=== PATIENT | female | born 1980 | race Caucasian/White ===

== ENCOUNTER 2017-01-03 06:57 | Emergency (ER) | payer MEDICAID, OTHER ==
[~2017-01-03 06:57] MED LIST: DULO30CA PO; IBUP200C PO; SERO200T PO
[2017-01-03] MEDS ORDERED: ONDANSETRON 4MG/2ML VIAL (J2405) As Ordered ONE (07:36)
[2017-01-03 07:48] LABS: BASO % 0.1 % (0.0-1.0); EOS # 0.3 K/mm3 (0.0-0.50); EOS % 2.5 % (0.0-3.0); LARGE UNSTAINED CELL % 0.2 % (0.0-4.0); LYMPH # 0.6 K/mm3 (1.5-4.5); MEAN CORPUSCULAR HEMOGLOBIN 31.7 pg (27.0-33.0); MEAN CORPUSCULAR HGB CONC 34.3 g/dl (32.0-36.5); MEAN CORPUSCULAR VOLUME 92.4 fl (80.0-96.0); MONO # 0.2 K/mm3 (0.0-0.8); NEUTROPHILS # 10.7 K/mm3 (1.8-7.7); NEUTROPHILS % 90.3 % (36.0-66.0); PLATELET COUNT, AUTOMATED 323 k/mm3 (150-450); RED CELL DISTRIBUTION WIDTH 12.3 % (11.5-14.5); WHITE BLOOD COUNT 11.8 K/mm3 (4.0-10.0)
[2017-01-03 08:06] LABS: ANION GAP 8 MEQ/L (8-16); BLOOD UREA NITROGEN 14 MG/DL (7-18); CALCIUM LEVEL 8.9 MG/DL (8.5-10.1); CARBON DIOXIDE LEVEL 30 MEQ/L (21-32); CHLORIDE LEVEL 101 MEQ/L (98-107); CREATININE FOR GFR 0.79 MG/DL (0.55-1.02); GLOMERULAR FILTRATION RATE > 60.0 (>60); GLUCOSE, FASTING 81 MG/DL (70-105); POTASSIUM SERUM 3.6 MEQ/L (3.5-5.1); SODIUM LEVEL 139 MEQ/L (136-145)
[2017-01-03] MEDS ORDERED: KETOROLAC 30 MG/ML VIAL (J1885) As Ordered ONE (08:54)
--- NOTE | 2017-01-03 10:14 | EDDOCDS ---
Nurse's Notes [facility] Name: Ann Nicole Age: 36 yrs Sex: Female : 1980 Arrival Date: 01/03/2017 Time: 06:57 Bed 11 Private MD: Diagnosis: Infectious gastroenteritis and colitis, unspecified Presentation: 01/03 07:00 Presenting complaint: Patient states: vomiting every hour and diarrhea every hour since hs1 6 pm last night. Patient states she worked through all this last night as well. Patient states she has not been able to void since 7pm and that her body aches and she has muscles spasms. Risk factors: the patient reports no vaginal bleeding. Adult Sepsis Screening: The patient does not have new or worsening altered mentation. Patient's respiratory rate is less than 22. Systolic blood pressure is greater than 100. Patient has a qSOFA score of 0- Negative Sepsis Screen. Suicide/Homicide risk assessment- the patient denies having any suicidal and/or homicidal ideations and does not present with any other emotional, behavioral or mental health complaints. Status: Patient is not a social worker health services or dependent. Transition of care: patient was not received from another setting of care. 07:00 Acuity: MITZY Level 3 hs1 07:00 Method Of Arrival: Walkin/Carried/Asstd hs1 Triage Assessment: 07:02 General: Appears in no apparent distress, Behavior is appropriate for age, cooperative. hs1 Pain: Location: "everywhere" Pain currently is 8 out of 10 on a pain scale. HIV screening NA for this visit Offered previously. GI: Reports bloating, cramping, diarrhea, flatulence, nausea, vomiting. 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 Cymbalta 60 mg Oral cpDR 1 cap once daily 2. Ativan 0.5 mg Oral tab 1 tab as needed 3. Seroquel 200 mg Oral tab nightly states does not take anymore? - PMHx: Anxiety; Bipolar disorder; - PSHx: Spinal Chord Stimulator Implantation; - Social history: Smoking status: Patient uses tobacco products, heavy tobacco smoker. No barriers to communication noted, The patient speaks fluent Pakistani, Speaks appropriately for age. - : The pt / caregiver states he / she is not on anticoagulants. Home medication list is obtained from the patient. - Exposure Risk Screening:: None identified. Screenin:45 Screening information is obtained from the patient. Fall risk: No risks identified. ja5 Assistance ADL's: requires no assistance with activities of daily living. Abuse/DV Screen: The patient / caregiver reports he/she is: not in a situation that causes fear, pain or injury. Nutritional screening: On no prescribed diet. Advance Directives: Currently, there is no health care proxy. There is no active DNR order. There is no living will. 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 home support is adequate. Assessment: 07:30 General: Appears uncomfortable, Behavior is appropriate for age, cooperative. Pain: ja5 Location: left lower quadrant Pain currently is 8 out of 10 on a pain scale. Neurological: Level of Consciousness is awake, alert, Oriented to person, place, time. Cardiovascular: Capillary refill < 3 seconds Heart tones S1 S2 present. Respiratory: Airway is patent Respiratory effort is even, unlabored. GI: Abdomen is flat, non- distended Bowel sounds present X 4 quads. Abd is soft X 4 quads Abd is tender to palpation in left lower quadrant. Derm: Skin is intact, Skin is pink, warm & dry. 08:14 General: Patient is awake and alert, resting in stretcher and states that her abdominal ja5 pain is unchanged at this time. NS IV bolus is running to LAC. Call quinn in reach. . 09:11 General: Appears in no apparent distress, Behavior is appropriate for age, cooperative. ja5 Pain: Location: left lower quadrant Pain currently is 6 out of 10 on a pain scale. Neurological: Level of Consciousness is awake, alert, Oriented to person, place, time. Cardiovascular: Capillary refill < 3 seconds. Respiratory: Airway is patent Respiratory effort is even, unlabored. GI: Abdomen is flat, non- distended Abd is soft X 4 quads. Derm: Skin is intact, Skin is pink, warm & dry. 09:13 General: Patient states that she no longer has tenderness to abdomen upon palpation, ja5 denies nausea, and tolerated PO fluids well. Temperature has increased to 100.1, provider aware. . Vital Signs: 07:03 BP 148 / 76; Pulse 123; Resp 18; Temp 99.1; Pulse Ox 98% ; Weight 67.59 kg; Height 5 hs1 ft. 5 in. (165.10 cm); Pain 8/10; 08:59 BP 123 / 77; Pulse 103; Resp 16; Temp 100.1; Pulse Ox 100% on R/A; Pain 6/10; ja5 09:01 Pulse 103; ja5 07:03 Body Mass Index 24.79 (67.59 kg, 165.10 cm) hs1 Vitals: 07:03 Log In Time: January 03, 2017 at 06:59. hs1 ED Course: 06:59 Patient visited by Gerri Boston Reg. hs2 06:59 Patient moved to Waiting hs2 07:01 Triage Initiated hs1 07:07 Oliva Mayo RN is Primary Nurse. hs1 07:07 Tanesha Live RN is Primary Nurse. hs1 07:07 Patient moved to 11 hs1 07:08 Lars Hirsch PA-C is PHCP. ar2 07:08 Mara Hoover MD is Attending Physician. ar2 07:08 Patient visited by Lars Hirsch PA-C. ar2 07:30 Patient visited by Tanesha Live RN. ja5 07:45 Inserted saline lock: 20 gauge in left antecubital area. ja5 07:47 Patient visited by Tanesha Live RN. ja5 07:47 Patient visited by Tanesha Live RN. ja5 07:55 Jessica Suarez RN is Primary Nurse. jc4 08:16 Patient visited by Tanesha Live RN. ja5 08:38 Patient visited by Tanesha Live RN. ja5 09:17 [facility] Payment Agreement was scanned into [employer] and attached to record. jp5 10:06 Primary Nurse role handed off by Oliva Mayo RN jc4 10:11 No procedures done that require assistance. ja5 Administered Medications: 07:44 Drug: Ondansetron 4 mg [ondansetron HCl 2 mg/mL intravenous solution (2 mL)] Route: ja5 IVP; Site: left antecubital; 07:45 Drug: NS 0.9% 1000 ml [sodium chloride 0.9 % intravenous solution] Route: IV; Rate: ja5 bolus; Site: left antecubital; 09:01 Follow up: Pulse 103 bpm ja5 09:04 Follow up: IV Status: Completed infusion; IV Intake: 1000ml 08:59 Drug: ketorolac 15 mg [ketorolac 30 mg/mL (1 mL) injection solution (0.5 mL)] Route: ja5 IVP; Site: left antecubital; Intake: 09:04 IV: 1000.00ml; Total: 1000.00ml. ja5 Order Results: Lab Order: CBC with Diff; SPEC'M 01/03/17 07:39 Test: WHITE BLOOD COUNT; Value: 11.8; Range: 4.0-10.0; Abnormal: Above high normal; Units: K/mm3; Status: F Test: RED BLOOD COUNT; Value: 4.88; Range: 4.00-5.40; Units: M/mm3; Status: F Test: HEMOGLOBIN; Value: 15.5; Range: 12.0-16.0; Units: g/dl; Status: F Test: HEMATOCRIT; Value: 45.1; Range: 36.0-47.0; Units: %; Status: F Test: MEAN CORPUSCULAR VOLUME; Value: 92.4; Range: 80.0-96.0; Units: fl; Status: F Test: MEAN CORPUSCULAR HEMOGLOBIN; Value: 31.7; Range: 27.0-33.0; Units: pg; Status: F Test: MEAN CORPUSCULAR HGB CONC; Value: 34.3; Range: 32.0-36.5; Units: g/dl; Status: F Test: RED CELL DISTRIBUTION WIDTH; Value: 12.3; Range: 11.5-14.5; Units: %; Status: F Test: PLATELET COUNT, AUTOMATED; Value: 323; Range: 150-450; Units: k/mm3; Status: F Test: NEUTROPHILS %; Value: 90.3; Range: 36.0-66.0; Abnormal: Above high normal; Units: %; Status: F Test: LYMPH %; Value: 5.0; Range: 24.0-44.0; Abnormal: Below low normal; Units: %; Status: F Test: MONO %; Value: 2.0; Range: 0.0-5.0; Units: %; Status: F Test: EOS %; Value: 2.5; Range: 0.0-3.0; Units: %; Status: F Test: BASO %; Value: 0.1; Range: 0.0-1.0; Units: %; Status: F Test: LARGE UNSTAINED CELL %; Value: 0.2; Range: 0.0-4.0; Units: %; Status: F Test: NEUTROPHILS #; Value: 10.7; Range: 1.8-7.7; Abnormal: Above high normal; Units: K/mm3; Status: F Test: LYMPH #; Value: 0.6; Range: 1.5-4.5; Abnormal: Below low normal; Units: K/mm3; Status: F Test: MONO #; Value: 0.2; Range: 0.0-0.8; Units: K/mm3; Status: F Test: EOS #; Value: 0.3; Range: 0.0-0.50; Units: K/mm3; Status: F Test: BASO #; Value: 0.0; Range: 0.0-0.2; Units: K/mm3; Status: F Test: LARGE UNSTAINED CELL #; Value: 0.0; Range: 0.0-0.4; Units: K/mm3; Status: F Lab Order: MED Profile; SPEC'M 01/03/17 07:39 Test: GLUCOSE, FASTING; Value: 81; Range: 70-105; Units: MG/DL; Status: F Test: BLOOD UREA NITROGEN; Value: 14; Range: 7-18; Units: MG/DL; Status: F Test: CREATININE FOR GFR; Value: 0.79; Range: 0.55-1.02; Units: MG/DL; Status: F Test: GLOMERULAR FILTRATION RATE; Value: > 60.0; Range: >60; Status: F Test: SODIUM LEVEL; Value: 139; Range: 136-145; Units: MEQ/L; Status: F Test: POTASSIUM SERUM; Value: 3.6; Range: 3.5-5.1; Units: MEQ/L; Status: F Test: CHLORIDE LEVEL; Value: 101; Range: 98-107; Units: MEQ/L; Status: F Test: CARBON DIOXIDE LEVEL; Value: 30; Range: 21-32; Units: MEQ/L; Status: F Test: ANION GAP; Value: 8; Range: 8-16; Units: MEQ/L; Status: F Test: CALCIUM LEVEL; Value: 8.9; Range: 8.5-10.1; Units: MG/DL; Status: F Test Note: ; Units are mL/min/1.73 m2 Chronic Kidney Disease Staging per NKF: Stage I & II GFR >=60 Normal to Mildly Decreased Stage III GFR 30-59 Moderately Decreased Stage IV GFR 15-29 Severely Decreased Stage V GFR <15 Very Little GFR Left ESRD GFR <15 on SKIN LAP BONDER Outcome: 09:01 Discharge ordered by Provider. ar2 10:11 Discharge Assessment: Patient awake, alert and oriented x 3. No cognitive and/or ja5 functional deficits noted. Patient verbalized understanding of disposition instructions. patient administered narcotics - no. The following High Risk Discharge criteria are identified: None. Discharged to home. Discharged to home ambulatory, with family. Condition: stable. Discharge instructions given to patient, Instructed on discharge instructions, follow up and referral plans. medication usage, Demonstrated understanding of instructions, medications, Prescriptions given X 1. No special radiology studies were completed. Property :Personal belongings accompany Pt. 10:13 Patient left the ED. ja5 Signatures: Lars Hirsch PAZaire PAZaire ar2 Georgia Escobar, RN RN hs1 Jessica Suarez, RN RN alida4 Richy Mora 5 Gerri Boston, Reg Reg hs2 Tanesha Live,RN RN ja5 Corrections: (The following items were deleted from the chart) 09:11 08:59 BP 123 / 77; Pulse 103bpm; Resp 16bpm; Pulse Ox 100% RA; Pain 6/10; ja5 ja5 MTDD
--- NOTE | 2017-01-03 10:14 | EDDOCDS ---
Physician Documentation [facility] Name: Ann Nicole Age: 36 yrs Sex: Female : 1980 Arrival Date: 01/03/2017 Time: 06:57 Bed 11 Private MD: Disposition: 01/03/17 09:01 Discharged to Home/Self Care. Impression: Infectious gastroenteritis and colitis, unspecified. - Condition is Stable. - Discharge Instructions: Viral Gastroenteritis. - Prescriptions for ZOFRAN ODT 4 mg Oral - dissolve 1 tablet by ORAL route every 6-8 hours As needed do not chew, do not swallow whole; 10 tablet. - Medication Reconciliation, Local Pharmacy Hours, Work Release Form - 2 day form. - Follow up: Emergency Department; When: As needed; Reason: Fever > 102F, Worsening of conditions. - Problem is new. - Symptoms have improved. Historical: - Allergies: no known allergies; - Home Meds: 1. Cymbalta 60 mg Oral cpDR 1 cap once daily 2. Ativan 0.5 mg Oral tab 1 tab as needed 3. Seroquel 200 mg Oral tab nightly states does not take anymore? - PMHx: Anxiety; Bipolar disorder; - PSHx: Spinal Chord Stimulator Implantation; - Social history: Smoking status: Patient uses tobacco products, heavy tobacco smoker. No barriers to communication noted, The patient speaks fluent Lithuanian, Speaks appropriately for age. - : The pt / caregiver states he / she is not on anticoagulants. Home medication list is obtained from the patient. - Exposure Risk Screening:: None identified. 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 5 in. (165.10 cm); Pain 8/10; 08:59 BP 123 / 77; Pulse 103; Resp 16; Temp 100.1; Pulse Ox 100% on R/A; Pain 6/10; ja5 09:01 Pulse 103; ja5 07:03 Body Mass Index 24.79 (67.59 kg, 165.10 cm) hs1 MDM: 07:19 IV Saline Lock ordered. ar2 07:19 NS 0.9% 1000 ml IV at bolus once ordered. ar2 07:19 Ondansetron 4 mg IVP once ordered. ar2 07:19 Fluid Challenge ordered. ar2 07:21 CBC with Diff Ordered. EDMS 07:21 MED Profile Ordered. EDMS 08:21 CBC with Diff Reviewed. ar2 08:21 MED Profile Reviewed. ar2 08:46 ketorolac 15 mg IVP once ordered. ar2 09:17 [facility] Payment Agreement was scanned into [employer] and attached to record. jp5 09:17 Financial registration complete. jp5 Administered Medications: 07:44 Drug: Ondansetron 4 mg [ondansetron HCl 2 mg/mL intravenous solution (2 mL)] Route: ja5 IVP; Site: left antecubital; 07:45 Drug: NS 0.9% 1000 ml [sodium chloride 0.9 % intravenous solution] Route: IV; Rate: ja5 bolus; Site: left antecubital; 09:01 Follow up: Pulse 103 bpm ja5 09:04 Follow up: IV Status: Completed infusion; IV Intake: 1000ml ja5 08:59 Drug: ketorolac 15 mg [ketorolac 30 mg/mL (1 mL) injection solution (0.5 mL)] Route: ja5 IVP; Site: left antecubital; Signatures: Dispatcher [employer] EDLars Lawson PA-C PA-C ar2 Georgia Escobar, RN RN hs1 Richy Mora jp5 Tanesha Live RN RN ja5 The chart was reviewed and I authenticate all verbal orders and agree with the evaluation and treatment provided.Attachments: :17 [facility] Payment Agreement jp5 MTDD
--- NOTE | 2017-01-05 11:13 | EDDOCDS ---
Physician Documentation [facility] Name: Ann Nicole Age: 36 yrs Sex: Female : 1980 Arrival Date: 01/03/2017 Time: 06:57 Bed 11 Private MD: Disposition: 01/03/17 09:01 Discharged to Home/Self Care. Impression: Infectious gastroenteritis and colitis, unspecified. - Condition is Stable. - Discharge Instructions: Viral Gastroenteritis. - Prescriptions for ZOFRAN ODT 4 mg Oral - dissolve 1 tablet by ORAL route every 6-8 hours As needed do not chew, do not swallow whole; 10 tablet. - Medication Reconciliation, Local Pharmacy Hours, Work Release Form - 2 day form. - Follow up: Emergency Department; When: As needed; Reason: Fever > 102F, Worsening of conditions. - Problem is new. - Symptoms have improved. Historical: - Allergies: no known allergies; - Home Meds: 1. Cymbalta 60 mg Oral cpDR 1 cap once daily 2. Ativan 0.5 mg Oral tab 1 tab as needed 3. Seroquel 200 mg Oral tab nightly states does not take anymore? - PMHx: Anxiety; Bipolar disorder; - PSHx: Spinal Chord Stimulator Implantation; - Social history: Smoking status: Patient uses tobacco products, heavy tobacco smoker. No barriers to communication noted, The patient speaks fluent Romanian, Speaks appropriately for age. - Family history: Not pertinent. - : The pt / caregiver states he / she is not on anticoagulants. Home medication list is obtained from the patient. - Exposure Risk Screening:: None identified. 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 5 in. (165.10 cm); Pain 8/10; 08:59 BP 123 / 77; Pulse 103; Resp 16; Temp 100.1; Pulse Ox 100% on R/A; Pain 6/10; ja5 09:01 Pulse 103; ja5 09:45 Pain 2/10; ja5 07:03 Body Mass Index 24.79 (67.59 kg, 165.10 cm) hs1 MDM: 07:19 IV Saline Lock ordered. ar2 07:19 NS 0.9% 1000 ml IV at bolus once ordered. ar2 07:19 Ondansetron 4 mg IVP once ordered. ar2 07:19 Fluid Challenge ordered. ar2 07:21 CBC with Diff Ordered. EDMS 07:21 MED Profile Ordered. EDMS 08:21 CBC with Diff Reviewed. ar2 08:21 MED Profile Reviewed. ar2 08:46 ketorolac 15 mg IVP once ordered. ar2 09:17 [facility] Payment Agreement was scanned into [employer] and attached to record. : Financial registration complete. 01/04 12:59 T-Sheet-- Draft Copy was scanned into [employer] and attached to record. gb Administered Medications: 01/03 07:44 Drug: Ondansetron 4 mg [ondansetron HCl 2 mg/mL intravenous solution (2 mL)] Route: ja5 IVP; Site: left antecubital; 07:45 Drug: NS 0.9% 1000 ml [sodium chloride 0.9 % intravenous solution] Route: IV; Rate: ja5 bolus; Site: left antecubital; 09:01 Follow up: Pulse 103 bpm ja5 09:04 Follow up: IV Status: Completed infusion; IV Intake: 1000ml 5 08:59 Drug: ketorolac 15 mg [ketorolac 30 mg/mL (1 mL) injection solution (0.5 mL)] Route: ja5 IVP; Site: left antecubital; 09:45 Follow up: Pain 2/10 Adult ja5 Signatures: Dispatcher [employer] EDMS Nai Adames, Reg Reg gb Lars Hirsch PA-C PA-C ar2 Georgia Escobar RN RN hs1 Richy Mora jp5 Tanesha Live RN RN ja5 The chart was reviewed and I authenticate all verbal orders and agree with the evaluation and treatment provided.Attachments: : [facility] Payment Agreement 01/04 12:59 T-Sheet-- Draft Copy gb Chart Complete MTDD
--- NOTE | 2017-01-05 11:13 | EDDOCDS ---
Physician Documentation [facility] Name: Ann Nicole Age: 36 yrs Sex: Female : 1980 Arrival Date: 01/03/2017 Time: 06:57 Bed 11 Private MD: Disposition: 01/03/17 09:01 Discharged to Home/Self Care. Impression: Infectious gastroenteritis and colitis, unspecified. - Condition is Stable. - Discharge Instructions: Viral Gastroenteritis. - Prescriptions for ZOFRAN ODT 4 mg Oral - dissolve 1 tablet by ORAL route every 6-8 hours As needed do not chew, do not swallow whole; 10 tablet. - Medication Reconciliation, Local Pharmacy Hours, Work Release Form - 2 day form. - Follow up: Emergency Department; When: As needed; Reason: Fever > 102F, Worsening of conditions. - Problem is new. - Symptoms have improved. Historical: - Allergies: no known allergies; - Home Meds: 1. Cymbalta 60 mg Oral cpDR 1 cap once daily 2. Ativan 0.5 mg Oral tab 1 tab as needed 3. Seroquel 200 mg Oral tab nightly states does not take anymore? - PMHx: Anxiety; Bipolar disorder; - PSHx: Spinal Chord Stimulator Implantation; - Social history: Smoking status: Patient uses tobacco products, heavy tobacco smoker. No barriers to communication noted, The patient speaks fluent Japanese, Speaks appropriately for age. - Family history: Not pertinent. - : The pt / caregiver states he / she is not on anticoagulants. Home medication list is obtained from the patient. - Exposure Risk Screening:: None identified. 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 5 in. (165.10 cm); Pain 8/10; 08:59 BP 123 / 77; Pulse 103; Resp 16; Temp 100.1; Pulse Ox 100% on R/A; Pain 6/10; ja5 09:01 Pulse 103; ja5 09:45 Pain 2/10; ja5 07:03 Body Mass Index 24.79 (67.59 kg, 165.10 cm) hs1 MDM: 07:19 IV Saline Lock ordered. ar2 07:19 NS 0.9% 1000 ml IV at bolus once ordered. ar2 07:19 Ondansetron 4 mg IVP once ordered. ar2 07:19 Fluid Challenge ordered. ar2 07:21 CBC with Diff Ordered. EDMS 07:21 MED Profile Ordered. EDMS 08:21 CBC with Diff Reviewed. ar2 08:21 MED Profile Reviewed. ar2 08:46 ketorolac 15 mg IVP once ordered. ar2 09:17 [facility] Payment Agreement was scanned into [employer] and attached to record. : Financial registration complete. 01/04 12:59 T-Sheet-- Draft Copy was scanned into [employer] and attached to record. gb Administered Medications: 01/03 07:44 Drug: Ondansetron 4 mg [ondansetron HCl 2 mg/mL intravenous solution (2 mL)] Route: ja5 IVP; Site: left antecubital; 07:45 Drug: NS 0.9% 1000 ml [sodium chloride 0.9 % intravenous solution] Route: IV; Rate: ja5 bolus; Site: left antecubital; 09:01 Follow up: Pulse 103 bpm ja5 09:04 Follow up: IV Status: Completed infusion; IV Intake: 1000ml 5 08:59 Drug: ketorolac 15 mg [ketorolac 30 mg/mL (1 mL) injection solution (0.5 mL)] Route: ja5 IVP; Site: left antecubital; 09:45 Follow up: Pain 2/10 Adult ja5 Signatures: Dispatcher [employer] EDMS Nai Adames, Reg Reg gb Lars Hirsch PA-C PA-C ar2 Georgia Escobar RN RN hs1 Richy Mora jp5 Tanesha Live RN RN ja5 The chart was reviewed and I authenticate all verbal orders and agree with the evaluation and treatment provided.Attachments: : [facility] Payment Agreement 01/04 12:59 T-Sheet-- Draft Copy gb Chart Complete MTDD
--- NOTE | 2017-01-05 11:13 | EDDOCDS ---
Nurse's Notes [facility] Name: Ann iNcole Age: 36 yrs Sex: Female : 1980 Arrival Date: 01/03/2017 Time: 06:57 Bed 11 Private MD: Diagnosis: Infectious gastroenteritis and colitis, unspecified Presentation: 01/03 07:00 Presenting complaint: Patient states: vomiting every hour and diarrhea every hour since hs1 6 pm last night. Patient states she worked through all this last night as well. Patient states she has not been able to void since 7pm and that her body aches and she has muscles spasms. Risk factors: the patient reports no vaginal bleeding. Adult Sepsis Screening: The patient does not have new or worsening altered mentation. Patient's respiratory rate is less than 22. Systolic blood pressure is greater than 100. Patient has a qSOFA score of 0- Negative Sepsis Screen. Suicide/Homicide risk assessment- the patient denies having any suicidal and/or homicidal ideations and does not present with any other emotional, behavioral or mental health complaints. Status: Patient is not a visitor service assistant or dependent. Transition of care: patient was not received from another setting of care. 07:00 Acuity: MITZY Level 3 hs1 07:00 Method Of Arrival: Walkin/Carried/Asstd hs1 Triage Assessment: 07:02 General: Appears in no apparent distress, Behavior is appropriate for age, cooperative. hs1 Pain: Location: "everywhere" Pain currently is 8 out of 10 on a pain scale. HIV screening NA for this visit Offered previously. GI: Reports bloating, cramping, diarrhea, flatulence, nausea, vomiting. [employer]CH[employer]ISER: 07:03 LMP 12/13/2016 hs1 Historical: - Allergies: no known allergies; - Home Meds: 1. Cymbalta 60 mg Oral cpDR 1 cap once daily 2. Ativan 0.5 mg Oral tab 1 tab as needed 3. Seroquel 200 mg Oral tab nightly states does not take anymore? - PMHx: Anxiety; Bipolar disorder; - PSHx: Spinal Chord Stimulator Implantation; - Social history: Smoking status: Patient uses tobacco products, heavy tobacco smoker. No barriers to communication noted, The patient speaks fluent [place], Speaks appropriately for age. - Family history: Not pertinent. - : The pt / caregiver states he / she is not on anticoagulants. Home medication list is obtained from the patient. - Exposure Risk Screening:: None identified. Screenin:45 Screening information is obtained from the patient. Fall risk: No risks identified. ja5 Assistance ADL's: requires no assistance with activities of daily living. Abuse/DV Screen: The patient / caregiver reports he/she is: not in a situation that causes fear, pain or injury. Nutritional screening: On no prescribed diet. Advance Directives: Currently, there is no health care proxy. There is no active DNR order. There is no living will. There is no Power of Educational Psychology Professor. home support is adequate. Assessment: 07:30 General: Appears uncomfortable, Behavior is appropriate for age, cooperative. Pain: ja5 Location: left lower quadrant Pain currently is 8 out of 10 on a pain scale. Neurological: Level of Consciousness is awake, alert, Oriented to person, place, time. Cardiovascular: Capillary refill < 3 seconds Heart tones S1 S2 present. Respiratory: Airway is patent Respiratory effort is even, unlabored. GI: Abdomen is flat, non- distended Bowel sounds present X 4 quads. Abd is soft X 4 quads Abd is tender to palpation in left lower quadrant. Derm: Skin is intact, Skin is pink, warm & dry. 08:14 General: Patient is awake and alert, resting in stretcher and states that her abdominal ja5 pain is unchanged at this time. NS IV bolus is running to LAC. Call quinn in reach. . 09:11 General: Appears in no apparent distress, Behavior is appropriate for age, cooperative. ja5 Pain: Location: left lower quadrant Pain currently is 6 out of 10 on a pain scale. Neurological: Level of Consciousness is awake, alert, Oriented to person, place, time. Cardiovascular: Capillary refill < 3 seconds. Respiratory: Airway is patent Respiratory effort is even, unlabored. GI: Abdomen is flat, non- distended Abd is soft X 4 quads. Derm: Skin is intact, Skin is pink, warm & dry. 09:13 General: Patient states that she no longer has tenderness to abdomen upon palpation, ja5 denies nausea, and tolerated PO fluids well. Temperature has increased to 100.1, provider aware. . 10:00 General: Appears in no apparent distress, Behavior is appropriate for age, cooperative, ja5 Patient is tolerating PO fluids, denies nausea and abdominal pain at this time. She is awake, alert and oriented with a steady gait. Respirations are even and unlabored, color is pink. . Pain: Denies pain. Neurological: Level of Consciousness is awake, alert, Oriented to person, place, time. Cardiovascular: Capillary refill < 3 seconds. Respiratory: Airway is patent Respiratory effort is even, unlabored. GI: Abdomen is flat, non- distended Bowel sounds present X 4 quads. Abd is soft X 4 quads Abd is non tender X 4 quads. Derm: Skin is intact, Skin is pink, warm & dry. Vital Signs: 07:03 BP 148 / 76; Pulse 123; Resp 18; Temp 99.1; Pulse Ox 98% ; Weight 67.59 kg; Height 5 hs1 ft. 5 in. (165.10 cm); Pain 8/10; 08:59 BP 123 / 77; Pulse 103; Resp 16; Temp 100.1; Pulse Ox 100% on R/A; Pain 6/10; ja5 09:01 Pulse 103; ja5 09:45 Pain 2/10; ja5 07:03 Body Mass Index 24.79 (67.59 kg, 165.10 cm) hs1 Vitals: 07:03 Log In Time: January 03, 2017 at 06:59. hs1 ED Course: 06:59 Patient visited by Gerri Boston Reg. hs2 06:59 Patient moved to Waiting hs2 07:01 Triage Initiated hs1 07:07 Oliva MayoRN is Primary Nurse. hs1 07:07 Tanesha Live RN is Primary Nurse. hs1 07:07 Patient moved to 11 hs1 07:08 Lars Hirsch PA-C is PHCP. ar2 07:08 Mara Hoover MD is Attending Physician. ar2 07:08 Patient visited by Lars Hirsch PA-C. ar2 07:10 The patient / caregiver is instructed regarding the plan of care and ED course. ja5 07:30 Patient visited by Tanesha Live RN. ja5 07:45 Inserted saline lock: 20 gauge in left antecubital area. ja5 07:47 Patient visited by Tanesha Live RN. ja5 07:47 Patient visited by Tanesha Live RN. ja5 07:55 Jessica Suarez, RN is Primary Nurse. jc4 08:16 Patient visited by Tanesha Live,RN. ja5 08:38 Patient visited by Tanesha Live,EDWIN. ja5 09:17 [facility] Payment Agreement was scanned into [email or web address] and attached to record. jp5 10:06 Primary Nurse role handed off by Oliva Mayo RN jc4 10:11 No procedures done that require assistance. ja5 10:31 Discontinued lock intact, bleeding controlled, pressure dressing applied, No ja5 redness/swelling at site. 01/04 12:59 T-Sheet-- Draft Copy was scanned into [email or web address] and attached to record. gb Administered Medications: 01/03 07:44 Drug: Ondansetron 4 mg [ondansetron HCl 2 mg/mL intravenous solution (2 mL)] Route: ja5 IVP; Site: left antecubital; 07:45 Drug: NS 0.9% 1000 ml [sodium chloride 0.9 % intravenous solution] Route: IV; Rate: ja5 bolus; Site: left antecubital; 09:01 Follow up: Pulse 103 bpm ja5 09:04 Follow up: IV Status: Completed infusion; IV Intake: 1000ml 5 08:59 Drug: ketorolac 15 mg [ketorolac 30 mg/mL (1 mL) injection solution (0.5 mL)] Route: ja5 IVP; Site: left antecubital; 09:45 Follow up: Pain 2 Adult 5 Intake: 09:04 IV: 1000.00ml; Total: 1000.00ml. [facility] Order Results: Lab Order: CBC with Diff; SPEC'M 01/03/17 07:39 Test: WHITE BLOOD COUNT; Value: 11.8; Range: 4.0-10.0; Abnormal: Above high normal; Units: K/mm3; Status: F Test: RED BLOOD COUNT; Value: 4.88; Range: 4.00-5.40; Units: M/mm3; Status: F Test: HEMOGLOBIN; Value: 15.5; Range: 12.0-16.0; Units: g/dl; Status: F Test: HEMATOCRIT; Value: 45.1; Range: 36.0-47.0; Units: %; Status: F Test: MEAN CORPUSCULAR VOLUME; Value: 92.4; Range: 80.0-96.0; Units: fl; Status: F Test: MEAN CORPUSCULAR HEMOGLOBIN; Value: 31.7; Range: 27.0-33.0; Units: pg; Status: F Test: MEAN CORPUSCULAR HGB CONC; Value: 34.3; Range: 32.0-36.5; Units: g/dl; Status: F Test: RED CELL DISTRIBUTION WIDTH; Value: 12.3; Range: 11.5-14.5; Units: %; Status: F Test: PLATELET COUNT, AUTOMATED; Value: 323; Range: 150-450; Units: k/mm3; Status: F Test: NEUTROPHILS %; Value: 90.3; Range: 36.0-66.0; Abnormal: Above high normal; Units: %; Status: F Test: LYMPH %; Value: 5.0; Range: 24.0-44.0; Abnormal: Below low normal; Units: %; Status: F Test: MONO %; Value: 2.0; Range: 0.0-5.0; Units: %; Status: F Test: EOS %; Value: 2.5; Range: 0.0-3.0; Units: %; Status: F Test: BASO %; Value: 0.1; Range: 0.0-1.0; Units: %; Status: F Test: LARGE UNSTAINED CELL %; Value: 0.2; Range: 0.0-4.0; Units: %; Status: F Test: NEUTROPHILS #; Value: 10.7; Range: 1.8-7.7; Abnormal: Above high normal; Units: K/mm3; Status: F Test: LYMPH #; Value: 0.6; Range: 1.5-4.5; Abnormal: Below low normal; Units: K/mm3; Status: F Test: MONO #; Value: 0.2; Range: 0.0-0.8; Units: K/mm3; Status: F Test: EOS #; Value: 0.3; Range: 0.0-0.50; Units: K/mm3; Status: F Test: BASO #; Value: 0.0; Range: 0.0-0.2; Units: K/mm3; Status: F Test: LARGE UNSTAINED CELL #; Value: 0.0; Range: 0.0-0.4; Units: K/mm3; Status: F Lab Order: MED Profile; HARI 01/03/17 07:39 Test: GLUCOSE, FASTING; Value: 81; Range: 70-105; Units: MG/DL; Status: F Test: BLOOD UREA NITROGEN; Value: 14; Range: 7-18; Units: MG/DL; Status: F Test: CREATININE FOR GFR; Value: 0.79; Range: 0.55-1.02; Units: MG/DL; Status: F Test: GLOMERULAR FILTRATION RATE; Value: > 60.0; Range: >60; Status: F Test: SODIUM LEVEL; Value: 139; Range: 136-145; Units: MEQ/L; Status: F Test: POTASSIUM SERUM; Value: 3.6; Range: 3.5-5.1; Units: MEQ/L; Status: F Test: CHLORIDE LEVEL; Value: 101; Range: 98-107; Units: MEQ/L; Status: F Test: CARBON DIOXIDE LEVEL; Value: 30; Range: 21-32; Units: MEQ/L; Status: F Test: ANION GAP; Value: 8; Range: 8-16; Units: MEQ/L; Status: F Test: CALCIUM LEVEL; Value: 8.9; Range: 8.5-10.1; Units: MG/DL; Status: F Test Note: ; Units are mL/min/1.73 m2 Chronic Kidney Disease Staging per NKF: Stage I & II GFR >=60 Normal to Mildly Decreased Stage III GFR 30-59 Moderately Decreased Stage IV GFR 15-29 Severely Decreased Stage V GFR <15 Very Little GFR Left ESRD GFR <15 on TOURIST ESCORT Outcome: 09:01 Discharge ordered by Provider. ar2 10:00 Discharge Assessment: Patient awake and alert. Oriented to person, place and time. ja5 Patient verbalized understanding of disposition instructions. 10:11 Discharge Assessment: Patient awake, alert and oriented x 3. No cognitive and/or ja5 functional deficits noted. Patient verbalized understanding of disposition instructions. patient administered narcotics - no. The following High Risk Discharge criteria are identified: None. Discharged to home. Discharged to home ambulatory, with family. Condition: stable. Discharge instructions given to patient, Instructed on discharge instructions, follow up and referral plans. medication usage, Demonstrated understanding of instructions, medications, Prescriptions given X 1. No special radiology studies were completed. Property :Personal belongings accompany Pt. 10:13 Patient left the ED. karine Signatures: Nai Adames, Reg Reg gb Lars Hirsch PA-C PA-C ar2 Georgia Escobar, RN RN hs1 Jessica Suarez RN RN jc4 Richy Mora jp5 Gerri Boston, Reg Reg hs2 Tanesha LiveRN RN ja5 Corrections: (The following items were deleted from the chart) 09:11 08:59 BP 123 / 77; Pulse 103bpm; Resp 16bpm; Pulse Ox 100% RA; Pain 6/10; ja5 karine Chart Complete MTDD
== END 2017-01-03 10:13 | disposition home or self-care (01) ==
LOC: M ED 06:57
DX: A08.4 Viral intestinal infection, unspecified (principal); E86.0 Dehydration; F31.9 Bipolar disorder, unspecified; F17.210 Nicotine dependence, cigarettes, uncomplicated; Z79.899 Other long term (current) drug therapy
CPT/HCPCS: 36415; 80048; 85025; 96361; 96374; 96375; 99283; J1885; J2405

== ENCOUNTER 2017-05-22 13:37 | Emergency (ER) | payer MEDICARE, MEDICAID ==
[~2017-05-22] VITALS: Ht 165.1 cm; Wt 71.4 kg
[~2017-05-22 13:37] MED LIST changes: -IBUP200C PO; +IBUP200C10 PO
[2017-05-22] MEDS ORDERED: KETOROLAC 60 MG/2 ML VIAL (J1885) IM ONE (14:15)
--- NOTE | 2017-05-22 15:14 | REP ---
Clinical: Acute on chronic pelvic pain with history of polycystic ovary syndrome. Technique: Transabdominal pelvic ultrasound followed by transvaginal examination for better evaluation of the endometrium and adnexa with color Doppler evaluation of the ovaries. Findings: Bladder is unremarkable and measures 5.2 x 2.4 x 3.3 cm . Normal retroverted uterus measures 7.2 x 4.5 x 5.7 cm . The endometrial complex measures 7 mm thickness. No discrete uterine or endometrial abnormalities are appreciated. Bilateral ovaries are normal in appearance and vascularity without evidence for torsion. Right ovary measures 2.9 x 2.2 x 2.4 cm ; R I = 0.37 . Left ovary measures 4.6 x 2.7 x 3.1 cm and includes 2.1 cm follicle and 1.9 cm hemorrhagic cyst ; R I = 0.42 . No pelvic fluid or adnexal mass lesion . Impression: 1. normal retroverted uterus and right ovary. 2. Dominant follicle and physiologic hemorrhagic cyst in the left ovary. Consider reevaluation in 4-6 weeks to evaluate for resolution. Signed by Willem Weldon MD 05/22/2017 03:05 P
[2017-05-22 15:31] VITALS: BP 144/90
[2017-05-22] MEDS ORDERED: NAPR500T PO (15:32)
[2017-05-22] MEDS ORDERED: ULTR50TA8 PO (15:32)
== END 2017-05-22 15:46 | disposition home or self-care (01) ==
LOC: M ED 14:38
DX: N83.202 Unspecified ovarian cyst, left side (principal); R10.2 Pelvic and perineal pain; Z79.899 Other long term (current) drug therapy; Z88.2 Allergy status to sulfonamides; Z88.8 Allergy status to other drugs, medicaments and biological substances
CPT/HCPCS: 76830; 76856; 81001; 81025; 93976; 96372; 99283; J1885

== ENCOUNTER → 2017-06-11 | Outpatient (REF) | payer MEDICARE, MEDICAID ==
[~2017-06-11] MED LIST changes: +ATIV1TAB10; +CYMB1CAP5; +FLUT1SPR2; +NAPR500T PO; +ULTR50TA8 PO
== END ==
LOC: M LAB REF 11:08
PROVIDERS: ATTEND Physician Assistant Medical
DX: R30.0 Dysuria (principal)

== ENCOUNTER 2017-08-28 09:47 | Emergency (ER) | payer MEDICARE, MEDICAID ==
[~2017-08-28] VITALS: Ht 165.1 cm; Wt 72.1 kg
[~2017-08-28 09:47] MED LIST changes: -ATIV1TAB10; -CYMB1CAP5; -FLUT1SPR2
[2017-08-28] MEDS ORDERED: FLUT1SPR2 (10:01)
[2017-08-28] MEDS ORDERED: CYMB1CAP5 (10:01)
[2017-08-28] MEDS ORDERED: ATIV1TAB10 (10:01)
[2017-08-28 11:20] LABS: BASO # 0.1 10^3/uL (0.0-0.2); BASO % 0.4 % (0.0-1.0); EOS # 0.1 10^3/uL (0.0-0.50); IMMATURE GRANULOCYTE % 0.4 % (0-0); LYMPH # 2.7 10^3/uL (1.5-4.5); LYMPH % 23.5 % (24.0-44.0); MEAN CORPUSCULAR HEMOGLOBIN 32.3 pg (27.0-33.0); MEAN CORPUSCULAR HGB CONC 34.8 g/dl (32.0-36.5); MEAN CORPUSCULAR VOLUME 92.8 fl (80.0-96.0); MONO # 0.5 10^3/uL (0.0-0.8); MONO % 4.3 % (0.0-5.0); NEUTROPHILS % 70.4 % (36.0-66.0); PLATELET COUNT, AUTOMATED 355 10^3/uL (150-450); RED CELL DISTRIBUTION WIDTH 11.8 % (11.5-14.5); WHITE BLOOD COUNT 11.3 10^3/uL (4.0-10.0)
[2017-08-28 11:21] LABS: ADD MANUAL DIFFER NO; DIFF SLIDE NUMBER 182
[2017-08-28 11:24] LABS: INR 0.97
[2017-08-28 11:33] LABS: ANION GAP 4 MEQ/L (8-16); BLOOD UREA NITROGEN 10 MG/DL (7-18); CALCIUM LEVEL 9.1 MG/DL (8.5-10.1); CARBON DIOXIDE LEVEL 29 MEQ/L (21-32); CHLORIDE LEVEL 105 MEQ/L (98-107); CREATININE FOR GFR 0.66 MG/DL (0.55-1.02); GLOMERULAR FILTRATION RATE > 60.0 (>60); GLUCOSE, FASTING 88 MG/DL (70-105); POTASSIUM SERUM 3.5 MEQ/L (3.5-5.1); SODIUM LEVEL 138 MEQ/L (136-145)
[2017-08-28] MEDS ORDERED: ASPIRIN 81 MG CHEW TABLET PO ONE (12:15)
[2017-08-28] MEDS ORDERED: NITROGLYCERIN 0.4 MG SUBL TABLET SL PRN (12:15)
[2017-08-28 12:23] VITALS: BP 136/89
[2017-08-28] MEDS ORDERED: ISOVUE-370 76% 100ML VIAL (Q9967) As Ordered ONE (12:25)
--- NOTE | 2017-08-28 12:59 | REP ---
CT of the chest with IV contrast, CT pulmonary angiography: There are no comparison studies. There are no emboli in the pulmonary trunk or central pulmonary arteries. There are no emboli in the lobe or segment branches. There are no masses, nodules, infiltrates or effusions. There is no mediastinal or hilar adenopathy. No axillary adenopathy. The thoracic aorta is. Cardiac size is normal. The visualized upper abdominal contents are unremarkable. Impression: There are no pulmonary emboli. Otherwise, negative CT study of the chest. Signed by Yvon Richey MD 08/28/2017 12:51 P
[2017-08-28 13:26] VITALS: BP 132/83
--- NOTE | 2017-08-29 09:15 | ECGEPIP ---
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
== END 2017-08-28 13:31 | disposition home or self-care (01) ==
LOC: M ED 09:47
DX: R07.9 Chest pain, unspecified (principal); F17.210 Nicotine dependence, cigarettes, uncomplicated; Z79.899 Other long term (current) drug therapy; Z79.51 Long term (current) use of inhaled steroids; Z86.711 Personal history of pulmonary embolism; Z82.3 Family history of stroke; Z98.890 Other specified postprocedural states; Z86.018 Personal history of other benign neoplasm; Z96.9 Presence of functional implant, unspecified
CPT/HCPCS: 71275; 80048; 82550; 82553; 84484; 85025; 85379; 85610; 85730; 93005; 93041; 94760; 99284; Q9967

== ENCOUNTER → 2017-12-17 | Outpatient (REF) | payer MEDICARE, MEDICAID ==
[2017-12-17 15:21] LABS: APPEARANCE, URINE CLOUDY (CLEAR); BACTERIA, URINE AUTO 1+ (NEGATIVE); BILIRUBIN, URINE AUTO NEGATIVE (NEGATIVE); BLOOD, URINE BLOOD 3+ (NEGATIVE); CALCIUM OXALATE CRYSTALS LARGE; COLOR, URINE AMBER (YELLOW); GLUCOSE, URINE (UA) AUTO NEGATIVE (NEGATIVE); KETONE, URINE AUTO NEGATIVE (NEGATIVE); LEUKOCYTE ESTERASE, URINE AUTO NEGATIVE (NEGATIVE); MUCUS, URINE SMALL (NEGATIVE); NITRITE, URINE AUTO NEGATIVE (NEGATIVE); PROTEIN, URINE AUTO NEGATIVE (NEGATIVE); RBC, URINE AUTO TNTC /HPF (0-3); SPECIFIC GRAVITY URINE AUTO 1.026 (1.002-1.035); SQUAMOUS EPITHELIAL CELL UR AU 5 /HPF (0-6); WBC, URINE AUTO 8 /HPF (0-3)
== END ==
LOC: M LAB REF 09:56
DX: N39.0 Urinary tract infection, site not specified (principal)
CPT/HCPCS: 81001

== ENCOUNTER → 2018-01-25 | Outpatient (REF) | payer MEDICARE, MEDICAID ==
[2018-01-25 14:12] LABS: APPEARANCE, URINE HAZY (CLEAR); BACTERIA, URINE AUTO NEGATIVE (NEGATIVE); BILIRUBIN, URINE AUTO NEGATIVE (NEGATIVE); BLOOD, URINE BLOOD 3+ (NEGATIVE); COLOR, URINE YELLOW (YELLOW); GLUCOSE, URINE (UA) AUTO NEGATIVE (NEGATIVE); KETONE, URINE AUTO TRACE mg/dL (NEGATIVE); LEUKOCYTE ESTERASE, URINE AUTO TRACE (NEGATIVE); MUCUS, URINE SMALL (NEGATIVE); NITRITE, URINE AUTO NEGATIVE (NEGATIVE); PROTEIN, URINE AUTO NEGATIVE (NEGATIVE); RBC, URINE AUTO 131 /HPF (0-3); SPECIFIC GRAVITY URINE AUTO 1.021 (1.002-1.035); SQUAMOUS EPITHELIAL CELL UR AU 8 /HPF (0-6); WBC, URINE AUTO 10 /HPF (0-3)
== END ==
LOC: M LAB REF 13:27
DX: N39.0 Urinary tract infection, site not specified (principal)
CPT/HCPCS: 81001

== ENCOUNTER 2018-02-06 10:42 | Emergency (ER) | payer MEDICARE, MEDICAID ==
[2018-02-06 11:13] LABS: CONTROL LINE UCG INT CTR LINE PRESENT; URINE PREG TEST NEGATIVE (NEGATIVE)
[2018-02-06 11:14] LABS: KETONE, URINE AUTO RFX NEGATIVE (NEGATIVE); LEUKOCYTE ESTERASE UR AUTO RFX NEGATIVE (NEGATIVE); NITRITE, URINE AUTO RFX NEGATIVE (NEGATIVE); RBC, URINE AUTO RFX 1 /HPF (0-3); SPECIFIC GRAVITY UR AUTO RFX 1.015 (1.002-1.035); SQUAM EPITHELIAL CELL UR AURFX 1 /HPF (0-6); WBC, URINE AUTO RFX 4 /HPF (0-3)
[2018-02-06] MEDS: PERCOCET 5MG/325MG TAB PO (11:52)
[2018-02-06 12:35] LABS: ANION GAP 6 MEQ/L (8-16); BLOOD UREA NITROGEN 11 MG/DL (7-18); CALCIUM LEVEL 9.2 MG/DL (8.5-10.1); CARBON DIOXIDE LEVEL 28 MEQ/L (21-32); CHLORIDE LEVEL 108 MEQ/L (98-107); CREATININE FOR GFR 0.57 MG/DL (0.55-1.30); GLOMERULAR FILTRATION RATE > 60.0 (>60); GLUCOSE, FASTING 85 MG/DL (70-100); POTASSIUM SERUM 4.6 MEQ/L (3.5-5.1); SODIUM LEVEL 142 MEQ/L (136-145)
== END 2018-02-06 13:24 | disposition home or self-care (01) ==
LOC: M ED 10:42
DX: R10.9 Unspecified abdominal pain (principal); N34.2 Other urethritis; M54.9 Dorsalgia, unspecified; E28.2 Polycystic ovarian syndrome; Z86.711 Personal history of pulmonary embolism; F17.210 Nicotine dependence, cigarettes, uncomplicated; Z79.899 Other long term (current) drug therapy
CPT/HCPCS: 76775

== ENCOUNTER → 2018-02-08 | Outpatient (REF) | payer MEDICARE, MEDICAID ==
[2018-02-08 20:26] LABS: APPEARANCE, URINE CLEAR (CLEAR); BACTERIA, URINE AUTO NEGATIVE (NEGATIVE); BILIRUBIN, URINE AUTO NEGATIVE (NEGATIVE); BLOOD, URINE BLOOD 3+ (NEGATIVE); COLOR, URINE AMBER (YELLOW); GLUCOSE, URINE (UA) AUTO NEGATIVE (NEGATIVE); KETONE, URINE AUTO NEGATIVE (NEGATIVE); LEUKOCYTE ESTERASE, URINE AUTO NEGATIVE (NEGATIVE); MUCUS, URINE SMALL (NEGATIVE); NITRITE, URINE AUTO NEGATIVE (NEGATIVE); PROTEIN, URINE AUTO NEGATIVE (NEGATIVE); RBC, URINE AUTO TNTC /HPF (0-3); SPECIFIC GRAVITY URINE AUTO 1.021 (1.002-1.035); SQUAMOUS EPITHELIAL CELL UR AU 0 /HPF (0-6); WBC, URINE AUTO 2 /HPF (0-3)
== END ==
LOC: M SMT 17:10
DX: R10.9 Unspecified abdominal pain (principal); R31.29 Other microscopic hematuria
CPT/HCPCS: 81001

== ENCOUNTER → 2018-02-09 | Outpatient (CLI) | payer MEDICARE, MEDICAID ==
[~2018-02-09] MED LIST changes: -DULO30CA PO; -IBUP200C10 PO; +ISOVUE-370 76% 100ML VIAL (Q9967) As Ordered; -NAPR500T PO; -SERO200T PO; -ULTR50TA8 PO
== END ==
LOC: M RAD 13:30
DX: R10.9 Unspecified abdominal pain (principal); R31.29 Other microscopic hematuria; K57.30 Diverticulosis of large intestine without perforation or abscess without bleeding; R93.49 Abnormal radiologic findings on diagnostic imaging of other urinary organs
CPT/HCPCS: Q9967

== ENCOUNTER → 2018-02-13 | Outpatient (REF) | payer MEDICARE, MEDICAID ==
[2018-02-13 13:30] LABS: BILIRUBIN, URINE MANUAL OBSCURED (NEGATIVE); BLOOD URINE MANUAL OBSCURED (NEGATIVE); COLOR, URINE MANUAL ORANGE (YELLOW); GLUCOSE, URINE (UA) MANUAL NEGATIVE (NEGATIVE); KETONE, URINE MANUAL NEGATIVE (NEGATIVE); LEUKOCYTE ESTERASE, URINE MAN OBSCURED (NEGATIVE); NITRITE, URINE MANUAL OBSCURED (NEGATIVE); PROTEIN, URINE MANUAL OBSCURED mg/dL (NEGATIVE); UROBILINOGEN, URINE MANUAL OBSCURED mg/dl (NORMAL)
[2018-02-13 13:31] LABS: APPEARANCE, URINE MANUAL CLEAR (CLEAR); MICROSCOPIC INDICATED? MAN YES (NO)
[2018-02-13 13:36] LABS: MICROSCOPIC EXAM PERFORMED
[2018-02-13 13:37] LABS: AMORPHOUS SEDIMENT, URINE SMALL AMOUNT (NEGATIVE); BACTERIA, URINE SMALL AMOUNT; HYALINE CAST, URINE NONE SEEN /lpf (0-1); MUCUS, URINE SMALL AMOUNT (NEGATIVE); RBC, URINE 20-30 /hpf (0-3); SQUAMOUS EPITHELIAL CELL URINE LARGE AMOUNT /hpf (SMALL AMT)
== END ==
LOC: M SMT 13:09
DX: R30.0 Dysuria (principal)
CPT/HCPCS: 81015

== ENCOUNTER → 2018-02-21 | Outpatient (REF) | payer MEDICARE, MEDICAID ==
[2018-02-21 23:24] LABS: INFLUENZA A AMPLIFICATION NEGATIVE (NEGATIVE); INFLUENZA B AMPLIFICATION NEGATIVE (NEGATIVE)
== END ==
LOC: M LAB REF 09:09
DX: Z11.59 Encounter for screening for other viral diseases (principal)
CPT/HCPCS: 87502

== ENCOUNTER → 2018-02-26 | Outpatient (REF) | payer MEDICARE, MEDICAID ==
[2018-02-26 13:02] LABS: APPEARANCE, URINE CLEAR (CLEAR); BACTERIA, URINE AUTO NEGATIVE (NEGATIVE); BILIRUBIN, URINE AUTO NEGATIVE (NEGATIVE); BLOOD, URINE BLOOD NEGATIVE (NEGATIVE); COLOR, URINE AMBER (YELLOW); GLUCOSE, URINE (UA) AUTO NEGATIVE (NEGATIVE); KETONE, URINE AUTO NEGATIVE (NEGATIVE); LEUKOCYTE ESTERASE, URINE AUTO NEGATIVE (NEGATIVE); MUCUS, URINE SMALL (NEGATIVE); NITRITE, URINE AUTO NEGATIVE (NEGATIVE); PROTEIN, URINE AUTO NEGATIVE (NEGATIVE); RBC, URINE AUTO 1 /HPF (0-3); SPECIFIC GRAVITY URINE AUTO 1.016 (1.002-1.035); SQUAMOUS EPITHELIAL CELL UR AU 0 /HPF (0-6); WBC, URINE AUTO 3 /HPF (0-3)
== END ==
LOC: M LAB REF 11:59
DX: N39.0 Urinary tract infection, site not specified (principal)
CPT/HCPCS: 81001

== ENCOUNTER → 2018-12-20 | Outpatient (REF) | payer BC ==
[~2018-12-20] MED LIST changes: +ATIV1TAB10; +CYMB1CAP5; +DULO30CA PO; +FLUT1SPR2; +IBUP200C25 PO; -ISOVUE-370 76% 100ML VIAL (Q9967) As Ordered; +NAPR-50 PO; +SERO200T PO; +ULTR50TA8 PO
[2018-12-20 13:52] LABS: APPEARANCE, URINE CLEAR (CLEAR); BACTERIA, URINE AUTO NEGATIVE (NEGATIVE); BILIRUBIN, URINE AUTO NEGATIVE (NEGATIVE); BLOOD, URINE BLOOD NEGATIVE (NEGATIVE); COLOR, URINE AMBER (YELLOW); GLUCOSE, URINE (UA) AUTO NEGATIVE (NEGATIVE); KETONE, URINE AUTO NEGATIVE (NEGATIVE); LEUKOCYTE ESTERASE, URINE AUTO NEGATIVE (NEGATIVE); MUCUS, URINE SMALL (NEGATIVE); NITRITE, URINE AUTO POSITIVE (NEGATIVE); PROTEIN, URINE AUTO NEGATIVE (NEGATIVE); RBC, URINE AUTO 2 /HPF (0-3); SPECIFIC GRAVITY URINE AUTO 1.016 (1.002-1.035); SQUAMOUS EPITHELIAL CELL UR AU 1 /HPF (0-6); WBC, URINE AUTO 0 /HPF (0-3)
== END ==
LOC: M LAB REF 12:35
PROVIDERS: ATTEND Physician Assistant
DX: N39.0 Urinary tract infection, site not specified (principal)

== ENCOUNTER → 2019-01-26 | Outpatient (REF) | payer BC, MEDICARE, MEDICAID ==
[2019-01-26 22:07] LABS: INFLUENZA A AMPLIFICATION NEGATIVE (NEGATIVE); INFLUENZA B AMPLIFICATION NEGATIVE (NEGATIVE)
== END ==
LOC: M LAB REF 11:15
PROVIDERS: ATTEND Physician Assistant Medical
DX: J11.1 Influenza due to unidentified influenza virus with other respiratory manifestations (principal)

== ENCOUNTER 2019-07-14 20:04 | Emergency (ER) | payer BC, MEDICAID ==
[~2019-07-14] VITALS: Ht 165.1 cm; Wt 74.5 kg
[~2019-07-14 20:04] MED LIST changes: -ZOFR4TAB16 PO
[2019-07-14] MEDS ORDERED: NS 1,000 ML IV ONE (21:15)
[2019-07-14] MEDS ORDERED: MORPHINE 4 MG/ML 1ML VIAL/SYRINGE (J2270) IV ONE ×2 (21:15→23:30)
[2019-07-14] MEDS ORDERED: ONDANSETRON 4MG/2ML VIAL (J2405) IV ONE (21:15)
[2019-07-14 21:18] LABS: HEMATOCRIT 37.7 % (36.0-47.0); HEMOGLOBIN 13.1 g/dl (12.0-15.5); MEAN CORPUSCULAR HEMOGLOBIN 32.1 pg (27.0-33.0); MEAN CORPUSCULAR HGB CONC 34.7 g/dl (32.0-36.5); MEAN CORPUSCULAR VOLUME 92.4 fl (80.0-96.0); PLATELET COUNT, AUTOMATED 317 10^3/uL (150-450); RED BLOOD COUNT 4.08 10^6/uL (4.00-5.40); WHITE BLOOD COUNT 10.3 10^3/uL (4.0-10.0)
[2019-07-14 21:37] LABS: BLOOD UREA NITROGEN 11 MG/DL (7-18); CALCIUM LEVEL 8.8 MG/DL (8.5-10.1); CARBON DIOXIDE LEVEL 27 MEQ/L (21-32); CHLORIDE LEVEL 107 MEQ/L (98-107); CREATININE FOR GFR 0.86 MG/DL (0.55-1.30); GLOMERULAR FILTRATION RATE > 60.0 (>60); GLUCOSE, FASTING 86 MG/DL (70-100); POTASSIUM SERUM 3.7 MEQ/L (3.5-5.1); SODIUM LEVEL 141 MEQ/L (136-145)
[2019-07-14] MEDS ORDERED: ISOVUE-370 76% 100ML VIAL (Q9967) As Ordered ONE (23:55)
--- NOTE | 2019-07-15 00:05 | REPVR ---
EXAM: US Pelvis Complete, Transabdominal EXAM DATE/TIME: 07/14/2019 11:15 PM CLINICAL HISTORY: 39 years old, female; Pelvic pain; Additional info: Pelvic pain, L flank pain, urine neg TECHNIQUE: Imaging protocol: Real-time transabdominal pelvic ultrasound with image documentation. Complete exam. COMPARISON: US PELVIC NON-OB COMPLETE 05/22/2017 2:47 PM FINDINGS: Uterus/cervix: Uterus is unremarkable measuring 7.8 x 4.8 x 5.9 cm. Endometrial stripe is normal measuring 10.4 mm. Right adnexa: Right ovary measures 4.0 x 2.4 x 4.4 cm. Complex hypoechoic area in the right ovary measuring 16.3 x 16.3 x 2.5 cm likely representing hemorrhagic cyst. Normal vascular flow is seen in the right ovary. Left adnexa: Left ovary is unremarkable measuring 3.1 x 2.0 x 2.2 cm normal vascular flow seen. Free fluid: Trace free fluid in the pelvis. Bladder: Urinary bladder is unremarkable measuring 5.0 x 5.8 x 8.5 cm. IMPRESSION: Complex hypoechoic area in the right ovary measuring 16.3 x 16.3 x 2.5 cm likely representing hemorrhagic cyst. No evidence of torsion. Trace free fluid in the pelvis. Electronically signed by: Latricia Bryant On 07/15/2019 00:05:27 AM
--- NOTE | 2019-07-15 00:46 | REPVR ---
EXAM: CT Abdomen and Pelvis With Contrast EXAM DATE/TIME: 07/14/2019 12:01 AM CLINICAL HISTORY: 39 years old, female; Abdominal pain; Localized; Left lower quadrant (llq); Additional info: Llq pain, L flank pain, neg US TECHNIQUE: Imaging protocol: Axial computed tomography images of the abdomen and pelvis with intravenous contrast. Coronal and sagittal reformatted images were created and reviewed. Radiation optimization: All CT scans at this facility use at least one of these dose optimization techniques: automated exposure control; mA and/or kV adjustment per patient size (includes targeted exams where dose is matched to clinical indication); or iterative reconstruction. Contrast material: ISOVUE 370;Contrast volume: 100 ml;Contrast route: IV; COMPARISON: CT ABD PELVIS W/O FOL BY WIT 02/09/2018 1:55 PM FINDINGS: Liver: Normal. No mass. Gallbladder and bile ducts: Normal. No calcified stones. No ductal dilation. Pancreas: Normal. No ductal dilation. Spleen: Normal. No splenomegaly. Adrenals: Normal. No mass. Kidneys and ureters: Normal. No hydronephrosis. Stomach and bowel: Moderate fecal loading. No bowel dilatation or obstruction. Appendix: No evidence of appendicitis. Intraperitoneal space: Normal. No free air. No significant fluid collection. Vasculature: Normal. No abdominal aortic aneurysm. Lymph nodes: Normal. No enlarged lymph nodes. Bladder: Unremarkable as visualized. Reproductive: 23.5 x 17.3 x 22.1 mm low attenuation area in the right ovary representing ovarian cyst. Bilateral fallopian tube surgical clips. Bones/joints: No acute fracture. No dislocation. Soft tissues: Unremarkable. Other findings: DJD. IMPRESSION: 23.5 x 17.3 x 22.1 mm low attenuation area in the right ovary representing ovarian cyst. Moderate fecal loading. No bowel dilatation or obstruction. Electronically signed by: Latricia Bryant On 07/15/2019 00:46:23 AM
[2019-07-15] MEDS ORDERED: MAGNESIUM CITRATE 300 ML BTL PO ONE (01:00)
[2019-07-15] MEDS ORDERED: ONDANSETRON 4 MG ORAL DISINTEGRATING TAB (Q0162 PER 1MG) PO ONE (01:00)
[2019-07-15] MEDS ORDERED: ZOFR4TAB16 PO (01:01)
[2019-07-15 01:10] VITALS: BP 144/85
== END 2019-07-15 01:19 | disposition home or self-care (01) ==
LOC: M ED 20:04
DX: K59.00 Constipation, unspecified (principal); N83.201 Unspecified ovarian cyst, right side; Z79.899 Other long term (current) drug therapy; F17.210 Nicotine dependence, cigarettes, uncomplicated
CPT/HCPCS: 74177; 76830; 76856; 80048; 83605; 84702; 85027; 93976; 96374; 96375; 96376; 99284; J2270; J2405; Q0162; Q9967

== ENCOUNTER → 2019-07-14 | Outpatient (REF) | payer BC, MEDICARE, MEDICAID ==
[~2019-07-14] MED LIST changes: -DULO30CA PO; +DULO30CA9 PO; -NAPR-50 PO; +NAPR-837 PO; +ZOFR4TAB16 PO
[2019-07-14 20:18] LABS: APPEARANCE, URINE MANUAL HAZY (CLEAR); COLOR, URINE MANUAL ORANGE (YELLOW)
[2019-07-14 20:19] LABS: BILIRUBIN, URINE MANUAL OBSCURED (NEGATIVE); BLOOD URINE MANUAL TRACE (NEGATIVE); GLUCOSE, URINE (UA) MANUAL NEGATIVE (NEGATIVE); KETONE, URINE MANUAL NEGATIVE (NEGATIVE); LEUKOCYTE ESTERASE, URINE MAN OBSCURED (NEGATIVE); NITRITE, URINE MANUAL OBSCURED (NEGATIVE); PROTEIN, URINE MANUAL OBSCURED mg/dL (NEGATIVE); UROBILINOGEN, URINE MANUAL OBSCURED mg/dl (NORMAL)
[2019-07-14 20:30] LABS: BACTERIA, URINE SMALL AMOUNT; SQUAMOUS EPITHELIAL CELL URINE SMALL AMOUNT /hpf (SMALL AMT)
[2019-07-14 20:31] LABS: HYALINE CAST, URINE NONE SEEN /lpf (0-1); MUCUS, URINE SMALL AMOUNT (NEGATIVE)
== END ==
LOC: M LAB REF 10:35
PROVIDERS: ATTEND Physician Assistant Medical
DX: N39.0 Urinary tract infection, site not specified (principal)

== ENCOUNTER 2019-08-20 18:53 | Emergency (ER) | payer MEDICARE, MEDICAID ==
[~2019-08-20] VITALS: Ht 165.1 cm; Wt 79.1 kg
[~2019-08-20 18:53] MED LIST changes: +ZOFR4TAB16 PO
[2019-08-20 20:59] LABS: BASO % 0.3 % (0.0-1.0); EOS # 0.2 10^3/uL (0.0-0.5); EOS % 2.6 % (0.0-3.0); HEMATOCRIT 39.1 % (36.0-47.0); HEMOGLOBIN 13.5 g/dl (12.0-15.5); LYMPH # 2.7 10^3/uL (1.5-5.0); LYMPH % 37.5 % (24.0-44.0); MEAN CORPUSCULAR HEMOGLOBIN 33.3 pg (27.0-33.0); MEAN CORPUSCULAR HGB CONC 34.5 g/dl (32.0-36.5); MEAN CORPUSCULAR VOLUME 96.3 fl (80.0-96.0); MONO # 0.5 10^3/uL (0.0-0.8); MONO % 7.5 % (0.0-5.0); NEUTROPHILS # 3.7 10^3/uL (1.5-8.5); NEUTROPHILS % 51.7 % (36.0-66.0); PLATELET COUNT, AUTOMATED 376 10^3/uL (150-450); RED BLOOD COUNT 4.06 10^6/uL (4.00-5.40); WHITE BLOOD COUNT 7.2 10^3/uL (4.0-10.0)
[2019-08-20 21:17] LABS: BLOOD UREA NITROGEN 8 MG/DL (7-18); C REACTIVE PROTEIN QUANTITATIV 0.58 MG/DL (0.00-0.30); CALCIUM LEVEL 8.7 MG/DL (8.5-10.1); CARBON DIOXIDE LEVEL 28 MEQ/L (21-32); CHLORIDE LEVEL 107 MEQ/L (98-107); GLOMERULAR FILTRATION RATE > 60.0 (>60); GLUCOSE, FASTING 101 MG/DL (70-100); NT-PRO BNP 62 PG/ML (<125); POTASSIUM SERUM 3.9 MEQ/L (3.5-5.1); SODIUM LEVEL 141 MEQ/L (136-145)
[2019-08-20 21:21] LABS: ERYTHROCYTE SEDIMENTATION RATE 21 mm/hr (0-20)
[2019-08-20] MEDS ORDERED: NORCO, ANEXSIA 5/325MG TABLET (HYDROcodone/ACETAMINOPHEN) PO ONE (22:30)
[2019-08-21] MEDS ORDERED: MORPHINE 4 MG/ML 1ML VIAL/SYRINGE (J2270) IV ONE (00:30)
[2019-08-21 00:42] VITALS: BP 136/72
[2019-08-21] MEDS ORDERED: ISOVUE-370 76% 100ML VIAL (Q9967) As Ordered ONE (00:55)
--- NOTE | 2019-08-21 02:27 | REPVR ---
PROCEDURE INFORMATION: Exam: CT Angiography Chest With Contrast Exam date and time: 08/21/19 (12:59am) Clinical history: 39 year old female. Chest pain. TECHNIQUE: Imaging protocol: Computed tomographic angiography of the chest with intravenous contrast. 3D rendering: MIP reconstructed images were created and reviewed. Radiation optimization: All CT scans at this facility use at least one of these dose optimization techniques: automated exposure control; mA and/or kV adjustment per patient size (includes targeted exams where dose is matched to clinical indication); or iterative reconstruction. Contrast material: Iso Contrast volume: 75 ml Contrast route: Antecubital vein COMPARISON: CTA CHEST of 08/28/17 FINDINGS: Pulmonary arteries: Normal. No pulmonary emboli. Aorta: Unremarkable. No aortic aneurysm. No aortic dissection. Lungs: No consolidation. No masses. Mild bibasilar hypoventilatory changes. Pleural space: Unremarkable. No pneumothorax. No pleural effusions. Heart: Unremarkable. No cardiomegaly. No pericardial effusion. Lymph nodes: Unremarkable. No enlarged lymph nodes. Bones/joints: Unremarkable. No acute fracture. Soft tissues: Unremarkable. Other findings: Spinal stimulator device (leads at approx. T7-T9 levels). Small hiatal hernia. IMPRESSION: No acute findings. No filling defects suspicious for pulmonary emboli are seen. There is no CT evidence of aortic dissection nor leakage. No aortic aneurysm is appreciated. Electronically signed by: Itzel Olivas On 08/21/2019 02:26:29 AM
[2019-08-21 03:24] LABS: APPEARANCE, URINE CLEAR (CLEAR); BACTERIA, URINE AUTO NEGATIVE (NEGATIVE); BILIRUBIN, URINE AUTO NEGATIVE (NEGATIVE); BLOOD, URINE BLOOD 1+ (NEGATIVE); COLOR, URINE YELLOW (YELLOW); GLUCOSE, URINE (UA) AUTO NEGATIVE (NEGATIVE); KETONE, URINE AUTO NEGATIVE (NEGATIVE); LEUKOCYTE ESTERASE, URINE AUTO NEGATIVE (NEGATIVE); MUCUS, URINE SMALL (NEGATIVE); NITRITE, URINE AUTO NEGATIVE (NEGATIVE); PROTEIN, URINE AUTO NEGATIVE (NEGATIVE); RBC, URINE AUTO 1 /HPF (0-3); SQUAMOUS EPITHELIAL CELL UR AU 1 /HPF (0-6); WBC, URINE AUTO 1 /HPF (0-3)
[2019-08-21 03:26] LABS: SPECIFIC GRAVITY URINE AUTO >1.060 (1.002-1.035)
--- NOTE | 2019-08-21 08:43 | REP ---
Bilateral lower extremity deep vein duplex ultrasound: The deep veins demonstrate normal compression, normal Doppler color flow and normal Doppler waveforms with respiration and augmentation from the popliteal veins to the common femoral veins on the right and the left. Impression: There is no deep vein thrombus on the right or the left . Electronically Signed by Yvon Richey MD 08/21/2019 08:34 A
--- NOTE | 2019-08-29 16:19 | ECGEPIP ---
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
== END 2019-08-21 03:38 | disposition home or self-care (01) ==
LOC: M ED 18:53
DX: R22.43 Localized swelling, mass and lump, lower limb, bilateral (principal); R80.9 Proteinuria, unspecified; F31.9 Bipolar disorder, unspecified; E28.2 Polycystic ovarian syndrome; Z79.82 Long term (current) use of aspirin; F17.210 Nicotine dependence, cigarettes, uncomplicated
CPT/HCPCS: 36415; 71275; 80048; 81001; 83880; 85025; 85379; 85652; 86140; 87086; 93005; 93970; 96374; 99284; J2270; Q9967

== ENCOUNTER → 2019-09-19 | Outpatient (REF) | payer MEDICAID ==
[2019-09-19 13:00] LABS: BASO % 0.5 % (0.0-1.0); EOS # 0.1 10^3/uL (0.0-0.5); HEMATOCRIT 42.2 % (36.0-47.0); HEMOGLOBIN 14.1 g/dl (12.0-15.5); LYMPH # 1.5 10^3/uL (1.5-5.0); LYMPH % 25.4 % (24.0-44.0); MEAN CORPUSCULAR HEMOGLOBIN 32.1 pg (27.0-33.0); MEAN CORPUSCULAR HGB CONC 33.4 g/dl (32.0-36.5); MEAN CORPUSCULAR VOLUME 96.1 fl (80.0-96.0); MONO # 0.4 10^3/uL (0.0-0.8); MONO % 5.9 % (0.0-5.0); NEUTROPHILS % 66.9 % (36.0-66.0); PLATELET COUNT, AUTOMATED 403 10^3/uL (150-450); RED BLOOD COUNT 4.39 10^6/uL (4.00-5.40)
[2019-09-19 13:51] LABS: ALBUMIN 3.8 GM/DL (3.2-5.2); ALT/SGPT 18 U/L (12-78); BILIRUBIN,TOTAL 0.4 MG/DL (0.2-1.0); BLOOD UREA NITROGEN 12 MG/DL (7-18); CARBON DIOXIDE LEVEL 27 MEQ/L (21-32); CHLORIDE LEVEL 107 MEQ/L (98-107); CHOLESTEROL LEVEL 163 MG/DL (<200); CHOLESTEROL RISK RATIO 4.657 (<5); CREATININE FOR GFR 0.64 MG/DL (0.55-1.30); FREE T4 1.02 NG/DL (0.76-1.46); GLOMERULAR FILTRATION RATE > 60.0 (>60); GLUCOSE, FASTING 85 MG/DL (70-100); HDL CHOLESTEROL 35 MG/DL (>40); LDL CHOLESTEROL 103 MG/DL (<100); NON-HDL-C 128 MG/DL; POTASSIUM SERUM 4.2 MEQ/L (3.5-5.1); RHEUMATOID FACTOR QUANT < 10.0 IU/ML (<15.0); SODIUM LEVEL 140 MEQ/L (136-145); THYROID STIMULATING HORMONE 0.432 uIU/ML (0.358-3.740); TOTAL 25(OH) VITAMIN D 20.5 NG/ML (30.0-100.0); TOTAL PROTEIN 7.1 GM/DL (6.4-8.2); TRIGLYCERIDES LEVEL 125 MG/DL (<150); URIC ACID 3.9 MG/DL (2.6-6.0)
[2019-09-19 14:09] LABS: HEMOGLOBIN A1c 5.4 %
[2019-09-21 00:08] LABS: ANTINUCLEAR ANTIBODIES DIRECT Negative (Negative); COMPLEMENT TOTAL (CH50) > 60 U/mL (42-999999)
== END ==
LOC: M LAB REF 12:16
PROVIDERS: ATTEND Nurse Practitioner Family
DX: Z13.29 Encounter for screening for other suspected endocrine disorder (principal); Z13.9 Encounter for screening, unspecified; M25.50 Pain in unspecified joint

== ENCOUNTER → 2019-10-31 | Outpatient (REF) | payer MEDICAID, BC | LOC: M LAB REF 12:39 | PROVIDERS: ATTEND Physician Assistant | DX: R30.0 Dysuria (principal) ==

== ENCOUNTER → 2019-11-17 | Outpatient (REF) | payer BC, MEDICAID, MEDICARE, SELFPAY ==
[2019-11-17 12:31] LABS: BASO % 0.3 % (0.0-1.0); EOS # 0.2 10^3/uL (0.0-0.5); EOS % 3.2 % (0.0-3.0); HEMATOCRIT 41.7 % (36.0-47.0); HEMOGLOBIN 13.5 g/dl (12.0-15.5); LYMPH # 1.8 10^3/uL (1.5-5.0); MEAN CORPUSCULAR HEMOGLOBIN 31.6 pg (27.0-33.0); MEAN CORPUSCULAR HGB CONC 32.4 g/dl (32.0-36.5); MEAN CORPUSCULAR VOLUME 97.7 fl (80.0-96.0); MONO # 0.5 10^3/uL (0.0-0.8); MONO % 8.4 % (0.0-5.0); NEUTROPHILS # 3.4 10^3/uL (1.5-8.5); NEUTROPHILS % 57.9 % (36.0-66.0); PLATELET COUNT, AUTOMATED 362 10^3/uL (150-450); RED BLOOD COUNT 4.27 10^6/uL (4.00-5.40); WHITE BLOOD COUNT 5.9 10^3/uL (4.0-10.0)
== END ==
LOC: M LAB REF 12:13
PROVIDERS: ATTEND Physician Assistant
DX: L98.9 Disorder of the skin and subcutaneous tissue, unspecified (principal)

== ENCOUNTER 2019-11-19 01:21 | Emergency (ER) | payer BC, MEDICAID, MEDICARE ==
[~2019-11-19] VITALS: Ht 165.1 cm; Wt 165.0 kg
[2019-11-19 05:12] LABS: BASO % 0.2 % (0.0-1.0); EOS # 0.2 10^3/uL (0.0-0.5); EOS % 1.4 % (0.0-3.0); HEMATOCRIT 37.6 % (36.0-47.0); HEMOGLOBIN 12.5 g/dl (12.0-15.5); LYMPH % 17.5 % (24.0-44.0); MEAN CORPUSCULAR HEMOGLOBIN 31.8 pg (27.0-33.0); MEAN CORPUSCULAR HGB CONC 33.2 g/dl (32.0-36.5); MEAN CORPUSCULAR VOLUME 95.7 fl (80.0-96.0); MONO # 0.6 10^3/uL (0.0-0.8); MONO % 4.9 % (0.0-5.0); NEUTROPHILS # 8.7 10^3/uL (1.5-8.5); NEUTROPHILS % 75.6 % (36.0-66.0); PLATELET COUNT, AUTOMATED 348 10^3/uL (150-450); RED BLOOD COUNT 3.93 10^6/uL (4.00-5.40); WHITE BLOOD COUNT 11.5 10^3/uL (4.0-10.0)
[2019-11-19 05:28] LABS: INR 1.04; PROTHROMBIN TIME 13.3 SECONDS (11.8-14.0)
[2019-11-19 05:34] LABS: BLOOD UREA NITROGEN 11 MG/DL (7-18); CALCIUM LEVEL 8.4 MG/DL (8.5-10.1); CARBON DIOXIDE LEVEL 27 MEQ/L (21-32); CHLORIDE LEVEL 109 MEQ/L (98-107); CREATININE FOR GFR 0.58 MG/DL (0.55-1.30); ETHYL ALCOHOL (ETHANOL) < 0.003 % (0.000-0.010); GLOMERULAR FILTRATION RATE > 60.0 (>60); GLUCOSE, FASTING 84 MG/DL (70-100); POTASSIUM SERUM 3.8 MEQ/L (3.5-5.1); SODIUM LEVEL 141 MEQ/L (136-145)
[2019-11-19 05:55] VITALS: BP 118/61
--- NOTE | 2019-11-19 09:54 | REP ---
Clinical: Trauma. Fall. Comparison: None . Findings: The ventricles, sulci, and cisterns are normal in position and appearance. Aranda-white differentiation is maintained. No definite acute intracranial hemorrhage, mass/mass effect, pathology or trauma/injury. No evidence for acute infarction. No extra-axial fluid collection. Calvarium is intact. Paranasal sinuses and mastoid air cells are clear. Impression: 1. No evidence for acute intracranial pathology or trauma/injury. 2. A subtle area of hyperdensity in the left temporal lobe as noted on preliminary report is noted and likely due to technical factors rather than true intracranial hemorrhage. However, close clinical observation and reevaluation in 6-12 hours may be warranted if necessary. Electronically Signed by Willem Weldon MD 11/19/2019 09:46 A
--- NOTE | 2019-11-19 09:55 | REP ---
Clinical: Trauma. Fall. Technique: Axial noncontrast images from the skull base to the thoracic inlet with coronal and sagittal re-formations Findings: Subtle reversal of normal lordosis appreciated. Alignment is otherwise maintained. Cervical vertebral bodies including transverse processes and spinous processes are intact and there is no evidence for acute fracture / compression injury or subluxation. Focal early degenerative changes at C5-6 includes marginal osteophytes and minimal disc space narrowing. Spinal canal is patent. Posterior elements are intact. Paravertebral soft tissues are normal. Impression: Early focal degenerative spondylosis at C5-6. No evidence for acute trauma/injury. Electronically Signed by Willme Weldon MD 11/19/2019 09:46 A
--- NOTE | 2019-11-19 09:55 | REP ---
Clinical: Trauma. Fall. Technique: Axial noncontrast images from mid T12 through mid sacrum with coronal and sagittal re-formations. Findings: Alignment and lordosis maintained. No acute fracture / compression injury or subluxation. Focal advanced degenerative disc osteophyte complex at L5-S1 noted including narrowing to the bilateral neural foramen due to hypertrophic facet changes and osteophyte formation. Spinal canal appears patent. Paravertebral soft tissues are normal. Impression: 1. No acute fracture / compression injury or subluxation. 2. Focal advanced degenerative spondylosis at L5-S1. Electronically Signed by Willem Weldon MD 11/19/2019 09:46 A
== END 2019-11-19 05:55 | disposition short-term general hospital (02) ==
LOC: M ED 01:21
DX: S06.6X0A Traumatic subarachnoid hemorrhage without loss of consciousness, initial encounter (principal); W10.8XXA Fall (on) (from) other stairs and steps, initial encounter; Y92.018 Other place in single-family (private) house as the place of occurrence of the external cause; M43.16 Spondylolisthesis, lumbar region; M43.17 Spondylolisthesis, lumbosacral region; F33.9 Major depressive disorder, recurrent, unspecified; F41.9 Anxiety disorder, unspecified; Z79.899 Other long term (current) drug therapy
CPT/HCPCS: 36415; 70450; 72125; 72131; 80048; 85025; 85610; 85730; 99285; G0480

== ENCOUNTER → 2019-12-18 | Outpatient (CLI) | payer MEDICAID ==
--- NOTE | 2019-12-18 18:45 | REP ---
CT brain without contrast: History: Traumatic loss of consciousness. [place]. Comparison CT study November 19, 2019. 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 The bony calvarium is otherwise intact. There is no evidence of skull fracture. Visualized paranasal sinuses are clear. No intraorbital abnormality is seen. The lateral, third, and fourth ventricles are normal in size and position. Aranda-white differentiation pattern is normal above below the tentorium. There is no evidence of extra-axial fluid collection, mass, hemorrhage, or midline shift. There is no abnormal hyperdensity or encephalomalacia in the temporal lobe is visualized. Impression: Normal noncontrast brain CT study. Electronically Signed by Guido Schwartz MD 12/18/2019 07:08 P
== END ==
LOC: M RAD 17:26
PROVIDERS: ATTEND Psychiatry & Neurology Neurology
DX: S06.6X2S Traumatic subarachnoid hemorrhage with loss of consciousness of 31 minutes to 59 minutes, sequela (principal); X58.XXXS Exposure to other specified factors, sequela

== ENCOUNTER → 2020-02-28 | Outpatient (CLI) | payer MEDICAID ==
[2020-02-28 16:31] LABS: BASO % 0.3 % (0.0-1.0); EOS # 0.2 10^3/uL (0.0-0.5); EOS % 2.9 % (0.0-3.0); HEMATOCRIT 39.7 % (36.0-47.0); LYMPH # 2.2 10^3/uL (1.5-5.0); MEAN CORPUSCULAR HEMOGLOBIN 32.3 pg (27.0-33.0); MEAN CORPUSCULAR HGB CONC 32.7 g/dl (32.0-36.5); MEAN CORPUSCULAR VOLUME 98.5 fl (80.0-96.0); MONO # 0.5 10^3/uL (0.0-0.8); MONO % 8.2 % (0.0-5.0); NEUTROPHILS % 51.3 % (36.0-66.0); PLATELET COUNT, AUTOMATED 391 10^3/uL (150-450); RED BLOOD COUNT 4.03 10^6/uL (4.00-5.40); WHITE BLOOD COUNT 5.9 10^3/uL (4.0-10.0)
[2020-02-28 16:46] LABS: ALBUMIN 3.4 GM/DL (3.2-5.2); ALT/SGPT 24 U/L (12-78); BILIRUBIN,TOTAL 0.2 MG/DL (0.2-1.0); BLOOD UREA NITROGEN 8 MG/DL (7-18); CALCIUM LEVEL 9.1 MG/DL (8.5-10.1); CARBON DIOXIDE LEVEL 29 MEQ/L (21-32); CHLORIDE LEVEL 108 MEQ/L (98-107); CREATININE FOR GFR 0.72 MG/DL (0.55-1.30); GLOMERULAR FILTRATION RATE > 60.0 (>60); GLUCOSE, FASTING 110 MG/DL (70-100); NT-PRO BNP 23 PG/ML (<125); RHEUMATOID FACTOR QUANT < 10.0 IU/ML (<15.0); SODIUM LEVEL 139 MEQ/L (136-145); TOTAL PROTEIN 6.8 GM/DL (6.4-8.2)
[2020-03-03 00:09] LABS: ANTINUCLEAR ANTIBODIES DIRECT Negative (Negative)
== END ==
LOC: M WUC 11:21
PROVIDERS: ATTEND Physician Assistant
DX: M79.89 Other specified soft tissue disorders (principal); M79.621 Pain in right upper arm; M25.511 Pain in right shoulder; Z86.2 Personal history of diseases of the blood and blood-forming organs and certain disorders involving the immune mechanism; R60.9 Edema, unspecified

== ENCOUNTER → 2020-03-20 | Outpatient (REF) | payer MEDICAID | LOC: M LAB REF 16:56 | PROVIDERS: ATTEND Physician Assistant | DX: R35.0 Frequency of micturition (principal) ==

== ENCOUNTER → 2020-05-07 | Outpatient (CLI) | payer MEDICAID ==
[2020-05-07 12:14] LABS: BASO % 0.3 % (0.0-1.0); EOS # 0.2 10^3/uL (0.0-0.5); EOS % 2.8 % (0.0-3.0); HEMATOCRIT 41.8 % (36.0-47.0); HEMOGLOBIN 13.9 g/dl (12.0-15.5); LYMPH # 2.3 10^3/uL (1.5-5.0); LYMPH % 32.5 % (24.0-44.0); MEAN CORPUSCULAR HEMOGLOBIN 32.4 pg (27.0-33.0); MEAN CORPUSCULAR HGB CONC 33.3 g/dl (32.0-36.5); MEAN CORPUSCULAR VOLUME 97.4 fl (80.0-96.0); MONO # 0.5 10^3/uL (0.0-0.8); MONO % 7.6 % (0.0-5.0); NEUTROPHILS % 56.4 % (36.0-66.0); PLATELET COUNT, AUTOMATED 453 10^3/uL (150-450); RED BLOOD COUNT 4.29 10^6/uL (4.00-5.40); WHITE BLOOD COUNT 7.1 10^3/uL (4.0-10.0)
[2020-05-07 12:38] LABS: ALBUMIN 3.4 GM/DL (3.2-5.2); ALT/SGPT 32 U/L (12-78); BILIRUBIN,TOTAL 0.2 MG/DL (0.2-1.0); BLOOD UREA NITROGEN 7 MG/DL (7-18); CALCIUM LEVEL 8.8 MG/DL (8.5-10.1); CARBON DIOXIDE LEVEL 32 MEQ/L (21-32); CHLORIDE LEVEL 103 MEQ/L (98-107); CREATININE FOR GFR 0.68 MG/DL (0.55-1.30); GLOMERULAR FILTRATION RATE > 60.0 (>60); GLUCOSE, FASTING 135 MG/DL (70-100); POTASSIUM SERUM 4.6 MEQ/L (3.5-5.1); SODIUM LEVEL 139 MEQ/L (136-145); TOTAL PROTEIN 6.8 GM/DL (6.4-8.2)
== END ==
LOC: M PLALAB 09:41
PROVIDERS: ATTEND Physician Assistant
DX: M79.89 Other specified soft tissue disorders (principal)

== ENCOUNTER → 2020-05-15 | Outpatient (CLI) | payer BC, MEDICAID ==
[2020-05-15 11:22] LABS: BLOOD UREA NITROGEN 10 MG/DL (7-18); CALCIUM LEVEL 10.4 MG/DL (8.5-10.1); CARBON DIOXIDE LEVEL 35 MEQ/L (21-32); CHLORIDE LEVEL 99 MEQ/L (98-107); GLOMERULAR FILTRATION RATE > 60.0 (>60); GLUCOSE, FASTING 57 MG/DL (70-100); POTASSIUM SERUM 4.2 MEQ/L (3.5-5.1); SODIUM LEVEL 137 MEQ/L (136-145)
== END ==
LOC: M PLALAB 09:24
PROVIDERS: ATTEND Physician Assistant
DX: M79.89 Other specified soft tissue disorders (principal)

== ENCOUNTER 2021-05-21 04:23 | Emergency (ER) | payer BC, MEDICAID ==
[~2021-05-21] VITALS: Ht 165.1 cm; Wt 75.0 kg
[2021-05-21 04:23] VITALS: BP 172/81
[2021-05-21] MEDS ORDERED: HYDROMORPHONE HCL 0.5 MG/ 0.5 ML SYRINGE (J1170 PER 1) IV PRN (04:45)
[2021-05-21] MEDS ORDERED: ONDANSETRON 4MG/2ML VIAL IV ONE (04:45)
[2021-05-21 05:29] LABS: BASO % 0.2 % (0.0-1.0); EOS # 0.1 10^3/uL (0.0-0.5); EOS % 1.2 % (0.0-3.0); HEMATOCRIT 43.4 % (36.0-47.0); HEMOGLOBIN 14.9 g/dl (12.0-15.5); LYMPH # 1.4 10^3/uL (1.5-5.0); LYMPH % 14.7 % (24.0-44.0); MEAN CORPUSCULAR HEMOGLOBIN 31.6 pg (27.0-33.0); MEAN CORPUSCULAR HGB CONC 34.3 g/dl (32.0-36.5); MEAN CORPUSCULAR VOLUME 91.9 fl (80.0-96.0); MONO # 0.4 10^3/uL (0.0-0.8); MONO % 4.3 % (2.0-8.0); NEUTROPHILS # 7.4 10^3/uL (1.5-8.5); NEUTROPHILS % 79.1 % (36.0-66.0); PLATELET COUNT, AUTOMATED 390 10^3/uL (150-450); RED BLOOD COUNT 4.72 10^6/uL (4.00-5.40); WHITE BLOOD COUNT 9.3 10^3/uL (4.0-10.0)
[2021-05-21] MEDS ORDERED: HYDROMORPHONE HCL 0.5 MG/ 0.5 ML SYRINGE (J1170 PER 1) IV ONE (05:40)
[2021-05-21] MEDS ORDERED: ISOVUE-370 76% 100ML VIAL As Ordered ONE (05:52)
[2021-05-21 06:33] LABS: ALBUMIN 4.3 GM/DL (3.2-5.2); ALT/SGPT 31 U/L (12-78); BILIRUBIN,DIRECT < 0.1 MG/DL (0.0-0.2); BILIRUBIN,TOTAL 0.5 MG/DL (0.2-1.0); BLOOD UREA NITROGEN 12 MG/DL (7-18); CALCIUM LEVEL 9.5 MG/DL (8.5-10.1); CARBON DIOXIDE LEVEL 28 MEQ/L (21-32); CHLORIDE LEVEL 104 MEQ/L (98-107); CREATININE FOR GFR 0.58 MG/DL (0.55-1.30); GLOMERULAR FILTRATION RATE > 60.0 (>58); GLUCOSE, FASTING 81 MG/DL (70-100); LIPASE 46 U/L (73-393); POTASSIUM SERUM 3.7 MEQ/L (3.5-5.1); SODIUM LEVEL 137 MEQ/L (136-145); TOTAL PROTEIN 8.6 GM/DL (6.4-8.2)
--- NOTE | 2021-05-21 12:32 | REP ---
INDICATION: bilateral lower abdominal cramping COMPARISON: 07/15/2019. TECHNIQUE: CT Scan of the abdomen and pelvis was performed with intravenous administration of 100 cc of Isovue 370, without oral contrast. Sagittal and coronal reconstruction images are performed. FINDINGS: Lung bases: Unremarkable. Liver: Normal Gallbladder: Unremarkable. Spleen: Normal. Adrenals: Normal. Pancreas: Normal. Kidneys: Normal. Small and large bowel: A large amount of fecal material throughout the colon.. Free fluid: None. Abdominal aorta: No aneurysm or dissection. Adenopathy: None. Appendix: Not inflamed. Osseous structures: There are moderate degenerative changes at L5-S1. No compression fracture is seen.. Stimulator wires are noted in the region of the thoracic spine. Pelvis: No mass. Bilateral fallopian tube wires noted. IMPRESSION: Large amount of fecal material seen throughout the colon. Otherwise no acute finding is visualized. A preliminary report was provided by [facility] at the time of the exam. <Electronically signed by Yvon Aranda > 05/21/21 [id number]
== END 2021-05-21 08:38 | disposition left against medical advice (07) ==
LOC: M ED 04:23
DX: K59.00 Constipation, unspecified (principal); F41.9 Anxiety disorder, unspecified; F33.9 Major depressive disorder, recurrent, unspecified; Z79.899 Other long term (current) drug therapy
CPT/HCPCS: 74177; 80048; 80076; 83605; 83690; 85025; 86850; 86900; 86901; 93041; 96374; 96375; 96376; 99284; J1170; J2405; Q9967

== ENCOUNTER 2021-09-06 11:08 | Emergency (ER) | payer MEDICAID ==
[~2021-09-06] VITALS: Ht 167.6 cm; Wt 72.7 kg
[2021-09-06] MEDS ORDERED: ONDANSETRON 4 MG ORAL DISINTEGRATING TAB PO ONE (11:50)
[2021-09-06] MEDS ORDERED: ACETAMINOPHEN TAB 650MG DOSE (2X325MG) PO ONE (11:50)
[2021-09-06 12:06] LABS: BASO % 0.2 % (0.0-1.0); EOS % 0.2 % (0.0-3.0); HEMATOCRIT 40.8 % (36.0-47.0); HEMOGLOBIN 14.2 g/dl (12.0-15.5); LYMPH % 19.6 % (24.0-44.0); MEAN CORPUSCULAR HEMOGLOBIN 31.3 pg (27.0-33.0); MEAN CORPUSCULAR HGB CONC 34.8 g/dl (32.0-36.5); MEAN CORPUSCULAR VOLUME 89.9 fl (80.0-96.0); MONO # 0.2 10^3/uL (0.0-0.8); MONO % 4.6 % (2.0-8.0); NEUTROPHILS # 3.9 10^3/uL (1.5-8.5); NEUTROPHILS % 74.8 % (36.0-66.0); PLATELET COUNT, AUTOMATED 301 10^3/uL (150-450); RED BLOOD COUNT 4.54 10^6/uL (4.00-5.40); WHITE BLOOD COUNT 5.3 10^3/uL (4.0-10.0)
[2021-09-06 12:40] LABS: ALBUMIN 3.2 GM/DL (3.2-5.2); ALT/SGPT 27 U/L (12-78); AMYLASE 19 U/L (25-115); BILIRUBIN,DIRECT 0.1 MG/DL (0.0-0.2); BILIRUBIN,TOTAL 0.5 MG/DL (0.2-1.0); BLOOD UREA NITROGEN 8 MG/DL (7-18); CALCIUM LEVEL 8.5 MG/DL (8.5-10.1); CARBON DIOXIDE LEVEL 25 MEQ/L (21-32); CHLORIDE LEVEL 108 MEQ/L (98-107); CK-MB VALUE MASS < 1.0 NG/ML (<3.6); CPK CREATINE PHOSPHOKINASE 45 U/L (26-192); CREATININE FOR GFR 0.56 MG/DL (0.55-1.30); GLOMERULAR FILTRATION RATE > 60.0 (>58); GLUCOSE, FASTING 92 MG/DL (70-100); LIPASE 47 U/L (73-393); MB/CK RELATIVE INDEX 2.22 (< OR =4); POTASSIUM SERUM 3.9 MEQ/L (3.5-5.1); SODIUM LEVEL 140 MEQ/L (136-145); TOTAL PROTEIN 6.6 GM/DL (6.4-8.2); TROPONIN I < 0.02 NG/ML (< 0.10)
[2021-09-06] MEDS ORDERED: ISOVUE-370 76% 100ML VIAL As Ordered ONE (13:15)
--- NOTE | 2021-09-06 14:01 | REP ---
INDICATION: chest pain COMPARISON: 08/21/[address] angio chest TECHNIQUE: CT angiography of the chest after the intravenous administration of 75 cc Isovue 370 attention pulmonary arteries. FINDINGS: There is excellent visualization of the pulmonary arterial vasculature. There are no focal filling defects present that would be considered consistent with acute pulmonary emboli. The mediastinum and pulmonary naomi are stable. There is no evidence of a mass or adenopathy. There are no pleural or pericardial effusions. The imaged upper abdomen and imaged osseous structures are unchanged. A dorsal column stimulator is again seen to be unchanged the tip of which is at the T7 level. Evaluation of the lung funez shows slightly irregular bilateral lung base somewhat patchy opacities increased slightly from the prior exam. IMPRESSION: 1. There is no evidence of a pulmonary embolism. 2. Likely bibasilar subsegmental atelectatic changes. 3. Other findings as described above. <Electronically signed by Wander Wiley > 09/06/21 1348
[2021-09-06 14:02] LABS: RSV AMPLIFICATION NEGATIVE (NEGATIVE)
--- NOTE | 2021-09-06 14:07 | REP ---
INDICATION: abdominal pain, v/d. COMPARISON: Multiple the latest 05/21/2021 TECHNIQUE: Standard helical technique after the intravenous administration of 100 cc Isovue 370 FINDINGS: The liver, gallbladder, spleen, pancreas, adrenal glands, and kidneys are again seen to be within normal limits. The abdominal aorta and para-aortic regions are again seen to be within normal limits. The bowel loops and the mesenteries are again seen to be within normal limits. There is no mass or adenopathy. There is no free fluid or free air. Bone window technique throughout the examination again shows L5-S1 degenerative changes status quo. IMPRESSION: There is no evidence of acute disease or significant change compared to the prior exam with findings as described above. <Electronically signed by Wander Wiley > 09/06/21 [id number]
[2021-09-06 15:08] VITALS: BP 134/76
[2021-09-07] MEDS ORDERED: ACET500T15 PO (13:43)
== END 2021-09-06 15:11 | disposition home or self-care (01) ==
LOC: M ED 11:08
DX: R51.9 Headache, unspecified (principal); R19.7 Diarrhea, unspecified; F17.210 Nicotine dependence, cigarettes, uncomplicated
CPT/HCPCS: 36415; 71275; 74177; 80048; 80076; 82150; 82375; 82550; 82553; 83690; 85025; 87631; 99284; Q0162; Q9967

== ENCOUNTER 2021-09-07 10:01 | Inpatient (IN) | payer MEDICAID ==
[~2021-09-07] VITALS: Ht 165.1 cm; Wt 67.8 kg
[2021-09-07] MEDS ORDERED: NS 1,000 ML IV ONE (12:25)
[2021-09-07 13:06] LABS: BASO % 0.3 % (0.0-1.0); EOS % 0.1 % (0.0-3.0); HEMATOCRIT 40.6 % (36.0-47.0); HEMOGLOBIN 14.4 g/dl (12.0-15.5); LYMPH # 1.4 10^3/uL (1.5-5.0); LYMPH % 21.3 % (24.0-44.0); MEAN CORPUSCULAR HEMOGLOBIN 31.4 pg (27.0-33.0); MEAN CORPUSCULAR HGB CONC 35.5 g/dl (32.0-36.5); MEAN CORPUSCULAR VOLUME 88.5 fl (80.0-96.0); MONO # 0.3 10^3/uL (0.0-0.8); MONO % 4.4 % (2.0-8.0); NEUTROPHILS % 73.3 % (36.0-66.0); PLATELET COUNT, AUTOMATED 360 10^3/uL (150-450); RED BLOOD COUNT 4.59 10^6/uL (4.00-5.40); WHITE BLOOD COUNT 6.8 10^3/uL (4.0-10.0)
[2021-09-07] MEDS ORDERED: ONDANSETRON 4MG/2ML VIAL IV ONE ×2 (13:10→20:00)
[2021-09-07] MEDS ORDERED: KETOROLAC 30 MG/ML 1ML VIAL IV ONE (13:10)
[2021-09-07] MEDS ORDERED: POTASSIUM CHLORIDE 10MEQ SR TABLET PO ONE (13:10)
[2021-09-07] MEDS ORDERED: ACET500T15 PO (13:43)
[2021-09-07 14:02] LABS: INR 1.17; PARTIAL THROMBOPLASTIN TIME 30.8 SECONDS (25.9-37.0); PROTHROMBIN TIME 15.3 SECONDS (12.7-14.5)
[2021-09-07 14:03] LABS: ALBUMIN 3.8 GM/DL (3.2-5.2); ALT/SGPT 27 U/L (12-78); BILIRUBIN,DIRECT 0.2 MG/DL (0.0-0.2); BILIRUBIN,TOTAL 0.5 MG/DL (0.2-1.0); BLOOD UREA NITROGEN 6 MG/DL (7-18); CALCIUM LEVEL 9.1 MG/DL (8.5-10.1); CARBON DIOXIDE LEVEL 27 MEQ/L (21-32); CHLORIDE LEVEL 108 MEQ/L (98-107); CK-MB VALUE MASS < 1.0 NG/ML (<3.6); CPK CREATINE PHOSPHOKINASE 35 U/L (26-192); CREATININE FOR GFR 0.69 MG/DL (0.55-1.30); FERRITIN 95 NG/ML (8-252); GLOMERULAR FILTRATION RATE > 60.0 (>58); GLUCOSE, FASTING 99 MG/DL (70-100); LDH LACTATE DEHYDROGENASE 171 U/L (84-246); LIPASE 83 U/L (73-393); MB/CK RELATIVE INDEX 2.86 (< OR =4); POTASSIUM SERUM 3.3 MEQ/L (3.5-5.1); SODIUM LEVEL 141 MEQ/L (136-145); TOTAL PROTEIN 7.3 GM/DL (6.4-8.2); TROPONIN I < 0.02 NG/ML (< 0.10)
--- NOTE | 2021-09-07 14:27 | REP ---
INDICATION: covid COMPARISON: None. TECHNIQUE: Portable AP view of the chest FINDINGS: The mediastinum and cardiac silhouette are within normal limits for portable technique. The lung funez are clear without acute consolidation, effusion, or pneumothorax. Skeletal structures are intact. IMPRESSION: No acute cardiopulmonary process appreciated. <Electronically signed by Willem Weldon > 09/07/21 0947
[2021-09-07] MEDS ORDERED: NS 1,000 ML IV SCH ×2 (14:55→23:00)
[2021-09-07] MEDS: GASTROGRAFIN SOLUTION 30ML PO SCH ×2 (15:30→16:00)
[2021-09-07] MEDS ORDERED: PROMETHAZINE INJ 25 MG/ML VIAL (J2550) IV ONE (15:50)
[2021-09-07] MEDS: HYDROMORPHONE HCL 0.5 MG/ 0.5 ML SYRINGE (J1170 PER 1) IV PRN ×2 (16:15→16:52)
[2021-09-07] MEDS ORDERED: ISOVUE-370 76% 100ML VIAL As Ordered ONE (16:49)
[2021-09-07] MEDS ORDERED: HYDROMORPHONE HCL 0.5 MG/ 0.5 ML SYRINGE (J1170 PER 1) IV PRN (18:50)
[2021-09-07] MEDS ORDERED: HOME MED LIST COMPLETE! XX SCH (19:35)
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
[2021-09-07] MEDS ORDERED: MAALOX 30 ML SUSP *UDC PO PRN (22:55)
[2021-09-07] MEDS: ONDANSETRON 4MG/2ML VIAL IV SCH (23:55)
[2021-09-08] VITALS (9 sets, daily range): BP systolic 141–152; BP diastolic 85–90; O2SAT 100
[2021-09-08] MEDS ORDERED: methylPREDNISolone 125MG 2ML VIAL IV PRN (01:40)
[2021-09-08] MEDS ORDERED: diphenhydrAMINE 50MG/ML VIAL (J1200) IV PRN (01:40)
[2021-09-08] MEDS ORDERED: ALBUTEROL 90 MCG/ACT 8GM HFA INHALER INH PRN (01:40)
[2021-09-08] MEDS ORDERED: EPINEPHrine INJ 1 MG/ML 1ML AMP IM PRN (01:40)
[2021-09-08] MEDS ORDERED: BAMLANIVIMAB 700 MG, ETESEVIMAB 1,400 MG in NS 250 ML IV ONE (01:40)
[2021-09-08] MEDS ORDERED: NS 1,000 ML IV SCH (01:40)
[2021-09-08] MEDS ORDERED: ALBUTEROL SULFATE 2.5 MG/0.5 ML INH NEB SOLN INH PRN (01:40)
[2021-09-08] MEDS: KETOROLAC 30 MG/ML 1ML VIAL IV PRN ×2 (02:27→09:20)
[2021-09-08] MEDS: KCL 10MEQ/100ML SWI (KRUN) 10 MEQ in IV 1 EA IV SCH ×3 (02:27→06:32)
[2021-09-08] MEDS: HYDROMORPHONE HCL 0.5 MG/ 0.5 ML SYRINGE (J1170 PER 1) IV PRN ×2 (03:37→11:18)
[2021-09-08] MEDS: ONDANSETRON 4MG/2ML VIAL IV SCH ×5 (04:16→20:42)
[2021-09-08] MEDS: cefTRIAXone SOD 1 GM in D5W MINI-BAG PLUS 50 ML IV SCH ×2 (04:24→14:38)
[2021-09-08 06:27] LABS: BASO % 0.2 % (0.0-1.0); EOS % 0.1 % (0.0-3.0); HEMATOCRIT 39.3 % (36.0-47.0); HEMOGLOBIN 13.5 g/dl (12.0-15.5); LYMPH # 2.2 10^3/uL (1.5-5.0); LYMPH % 24.7 % (24.0-44.0); MEAN CORPUSCULAR HEMOGLOBIN 31.6 pg (27.0-33.0); MEAN CORPUSCULAR HGB CONC 34.4 g/dl (32.0-36.5); MONO # 0.5 10^3/uL (0.0-0.8); MONO % 5.2 % (2.0-8.0); NEUTROPHILS % 69.5 % (36.0-66.0); PLATELET COUNT, AUTOMATED 270 10^3/uL (150-450); RED BLOOD COUNT 4.27 10^6/uL (4.00-5.40); WHITE BLOOD COUNT 8.7 10^3/uL (4.0-10.0)
[2021-09-08 06:59] LABS: ALBUMIN 2.9 GM/DL (3.2-5.2); ALT/SGPT 31 U/L (12-78); BILIRUBIN,TOTAL 0.3 MG/DL (0.2-1.0); BLOOD UREA NITROGEN 11 MG/DL (7-18); CALCIUM LEVEL 8.8 MG/DL (8.5-10.1); CARBON DIOXIDE LEVEL 25 MEQ/L (21-32); CHLORIDE LEVEL 111 MEQ/L (98-107); CREATININE FOR GFR 0.63 MG/DL (0.55-1.30); GLOMERULAR FILTRATION RATE > 60.0 (>58); GLUCOSE, FASTING 91 MG/DL (70-100); MAGNESIUM LEVEL 1.8 MG/DL (1.8-2.4); POTASSIUM SERUM 3.8 MEQ/L (3.5-5.1); SODIUM LEVEL 143 MEQ/L (136-145); TOTAL PROTEIN 6.4 GM/DL (6.4-8.2)
[2021-09-08] MEDS: DOCUSATE SODIUM 100MG CAPSULE PO SCH ×2 (09:00→19:12)
[2021-09-08] MEDS: ENOXAPARIN 40MG/0.4ML SYRINGE (J1650 PER 10MG) SC SCH (09:06)
[2021-09-08] MEDS: ACETAMINOPHEN TAB 650MG DOSE (2X325MG) PO PRN ×2 (09:19→20:42)
--- NOTE | 2021-09-08 10:14 | REP ---
INDICATION: lower abdominal pain COMPARISON: None. TECHNIQUE: CT Scan of the abdomen and pelvis was performed with intravenous administration of 100 cc of Isovue 370, without oral contrast. Sagittal and coronal reconstruction images are performed. FINDINGS: Lung bases: Unremarkable. Liver: Normal Gallbladder: Unremarkable. Spleen: Normal. Adrenals: Normal. Pancreas: Normal. Kidneys: Normal. Small and large bowel: Unremarkable. Free fluid: None. Abdominal aorta: No aneurysm or dissection. Adenopathy: None. Appendix: Not inflamed. Osseous structures: There are moderate degenerative changes at L5-S1 without compression deformity the visualized vertebral bodies.. Pelvis: No mass. IMPRESSION: Negative CT abdomen and pelvis. A preliminary report was provided by virtual Radiology at the time of the exam. <Electronically signed by Yvon Aranda > 09/08/21 1014
--- NOTE | 2021-09-08 12:19 | IPNPDOC ---
Subjective Date Seen The patient was seen on 09/08/21. Subjective Chief Complaint/HPI Patient was seen and examined at bedside this morning. She reports that her loose stool have resolved. However, she continues to experience abdominal pain associated with nausea and vomiting. The emesis remains nonbloody. Today, she endorsed taking ibuprofen when she began to have symptoms including abdominal pain but found that this worsened the pain. She denies headaches, blurry vision, focal weakness, chest pain, shortness of breath, problems with urination and bowel movements Objective Physical Examination Other physical findings General: Lying in bed, no acute distress Head/Neck/Throat: Trachea midline, mucous membranes moist Eyes: Sclera anicteric, no erythema or discharge appreciated bilateral Thorax: Normal respiratory effort on room air, lungs clear to auscultation bilaterally, no wheezes/rales/rhonchi Cardiovascular: Normal rate, regular rhythm, normal S1, S2; no S3, S4, rubs/gallops/murmurs Abdomen: Bowel sounds present, soft, tenderness reported with light palpation in the epigastric region Genitourinary: No CVA tenderness, no Porter in place Musculoskeletal: Moving all extremities, no edema Skin: Warm, dry Neurologic: AAOx3, speech fluent and goal-directed, no focal deficits, grossly intact Assessment /Plan Assessment #Abdominal pain w/ emesis -CT-scan of the abdomen x 2 has been negative. Lactic acid is WNL. Unclear etio logy of abdominal pain. She endores using ibuprofen when her presening symptoms first began thinking it may help, but made the pain worst. It is possible she may have gastriits vs pud. She will be started on Protonix 40mg daily, and Carafate. #Carbonmonixde poisoning -No levels done in ED. Symptoms have largely resolved. There are no nuerological findings on exam; pt denies chest pain and shortness of breath. #Sinus angela -no acute intervention needed at this time. #Electrolyte abnormaility -Hypokalemia, resolved. #COVID-19 -This may be contributing to her presening symptoms. She is on room air with adequate saturations. Continue to monitor respiratory status. #Bipolar disorder -No signs of acute episode. Reportedly is noncompliant with follow-ups Plan/VTE VTE Prophylaxis Ordered?: Yes VS, I&O, 24H, Fishbone Vital Signs/I&O Vital Signs Date Time Temp Pulse Resp B/P (MAP) Pulse Ox O2 Delivery O2 Flow Rate FiO2 09/08/21 11:18 20 09/08/21 04:00 98.3 58 152/86 (108) 100 Room Air I&O- Last 24 Hours up to 6 AM 09/08/21 06:00 Intake Total 2300 ml Output Total 500 ml Balance 1800 ml Laboratory Data 24H LABS Laboratory Tests 2 09/07/21 12:56: Immature Granulocyte % (Auto) 0.6, Neutrophils (%) (Auto) 73.3H, Lymphocytes (%) (Auto) 21.3L, Monocytes (%) (Auto) 4.4, Eosinophils (%) (Auto) 0.1, Basophils (%) (Auto) 0.3, Neutrophils # (Auto) 5.0, Lymphocytes # (Auto) 1.4L, Monocytes # (Auto) 0.3, Eosinophils # (Auto) 0.0, Basophils # (Auto) 0.0, Nucleated Red Blood Cells % (auto) 0.0, Prothrombin Time 15.3H, Prothromb Time International Ratio 1.17, Activated Partial Thromboplast Time 30.8, Fibrinogen 246, Anion Gap 6L, Glomerular Filtration Rate > 60.0, Lactic Acid Level 1.1, Calcium Level 9.1, Magnesium Level 2.0, Ferritin 95, Total Bilirubin 0.5, Direct Bilirubin 0.2, Aspartate Amino Transf (AST/SGOT) 13, Alanine Aminotransferase (ALT/SGPT) 27, Alkaline Phosphatase 84, Lactate Dehydrogenase 171, Total Creatine Kinase 35, Creatine Kinase MB < 1.0, Creatine Kinase MB Relative Index 2.86, Troponin I < 0.02, C-Reactive Protein, Quantitative 0.30, Total Protein 7.3, Albumin 3.8, Albumin/Globulin Ratio 1.1L, Lipase 83, Procalcitonin <0.05 09/07/21 13:03: POC Glucose (Misc Panel) 106H, POC Sodium (Misc Panel) 142, POC Potassium (Misc Panel) 2.9*L, POC Chloride (Misc Panel) 105, POC Total CO2 (Misc Panel) 24.0, POC Blood Urea Nitrogen (Misc Panel 4L, POC Ionized Calcium (Misc Panel) 4.6, POC Creatinine (Misc Panel) 0.7, POC Hematocrit (Misc Panel) 40.0 10/12/21 13:08: POC Beta HCG, Quantitative < 5.0 09/07/21 18:49: Urine Color MARY, Urine Appearance HAZY, Urine pH 5.0, Urine Specific [place] 1.035, Urine Protein 2+H, Urine Glucose (UA) NEGATIVE, Urine Ketones 1+H, Urine Blood 2+H, Urine Nitrite NEGATIVE, Urine Bilirubin 1+H, Urine Urobilinogen 4.0H, Urine Leukocyte Esterase TRACEH, Urine WBC (Auto) 5H, Urine RBC (Auto) 59H, Urine Hyaline Casts (Auto) 0, Urine Bacteria (Auto) NEGATIVE, Urine Squamous Epithelial Cells 12, Urine Mucus (Auto) LARGE, Urine Sperm (Auto) 09/08/21 05:54: Immature Granulocyte % (Auto) 0.3, Neutrophils (%) (Auto) 69.5H, Lymphocytes (%) (Auto) 24.7, Monocytes (%) (Auto) 5.2, Eosinophils (%) (Auto) 0.1, Basophils (%) (Auto) 0.2, Neutrophils # (Auto) 6.0, Lymphocytes # (Auto) 2.2, Monocytes # (Auto) 0.5, Eosinophils # (Auto) 0.0, Basophils # (Auto) 0.0, Immature Granulocyte # (Auto) 0.0, Nucleated Red Blood Cells % (auto) 0.0, Platelet Estimate , Anion Gap 7L, Glomerular Filtration Rate > 60.0, Calcium Level 8.8, Magnesium Level 1.8, Total Bilirubin 0.3, Aspartate Amino Transf (AST/SGOT) 17, Alanine Aminotransferase (ALT/SGPT) 31, Alkaline Phosphatase 67, Total Protein 6.4, Albumin 2.9#L, Albumin/Globulin Ratio 0.8L CBC/BMP Laboratory Tests 09/07/21 12:56 09/08/21 05:54 Microbiology Microbiology 09/07/21 Urine Culture, Received Pending 09/07/21 Respiratory Virus Panel (PCR) ([facility]) - Final, Complete SARS-CoV-2 (COVID 19) SONAL BRADY M.D. Sep 08, 2021 12:19
[2021-09-08] MEDS ORDERED: POTASSIUM CHLORIDE 10MEQ SR TABLET PO ONE (13:00)
[2021-09-08] MEDS: MORPHINE 4 MG/ML 1ML VIAL/SYRINGE (J2270) IV PRN ×2 (14:37→18:07)
[2021-09-08] MEDS: PANTOPRAZOLE 40MG VIAL (C9113 PER 1) IV SCH (14:37)
--- NOTE | 2021-09-08 15:00 | ECGEPIP ---
[facility] Test Date: 2021-09-08 Pat Name: JENNY HALLMAN Department: Room: [place] [address] Gender: Female Core Sucker: inocente : 1980 Requested By: HEATHER NAQVI D.O. Order Number: [id number] Reading MD: Dominick Hook Measurements Intervals [place] Rate: 56 P: 82 FL: 140 QRS: 69 QRSD: 90 T: 61 QT: 454 QTc: 438 Interpretive Statements Sinus bradycardia with sinus arrhythmia Electronically Signed on 09-08-2021 14:59:59 EDT by Dominick Hook
[2021-09-08] MEDS: SUCRALFATE SUSP 1GM/10ML UD PO SCH ×2 (16:13→20:42)
[2021-09-08] MEDS ORDERED: NICOTINE 14 MG/24 HR TRANSDERMAL TD PRN (21:05)
[2021-09-09] VITALS: O2SAT 99
[2021-09-09] MEDS: cefTRIAXone SOD 1 GM in D5W MINI-BAG PLUS 50 ML IV SCH (02:23)
[2021-09-09] MEDS: ACETAMINOPHEN TAB 650MG DOSE (2X325MG) PO PRN (02:23)
[2021-09-09 04:00] VITALS: O2SAT 100
[2021-09-09] MEDS: ONDANSETRON 4MG/2ML VIAL IV SCH ×4 (04:17→11:15)
[2021-09-09 07:22] LABS: INR 1.16; PROTHROMBIN TIME 15.2 SECONDS (12.7-14.5)
[2021-09-09 07:23] LABS: PARTIAL THROMBOPLASTIN TIME 32.7 SECONDS (25.9-37.0)
[2021-09-09 07:26] LABS: ALBUMIN 2.9 GM/DL (3.2-5.2); ALT/SGPT 24 U/L (12-78); BILIRUBIN,DIRECT < 0.1 MG/DL (0.0-0.2); BILIRUBIN,TOTAL 0.4 MG/DL (0.2-1.0); BLOOD UREA NITROGEN 11 MG/DL (7-18); CALCIUM LEVEL 8.8 MG/DL (8.5-10.1); CARBON DIOXIDE LEVEL 25 MEQ/L (21-32); CHLORIDE LEVEL 111 MEQ/L (98-107); CPK CREATINE PHOSPHOKINASE 31 U/L (26-192); CREATININE FOR GFR 0.66 MG/DL (0.55-1.30); FERRITIN 100 NG/ML (8-252); GLOMERULAR FILTRATION RATE > 60.0 (>58); GLUCOSE, FASTING 98 MG/DL (70-100); LDH LACTATE DEHYDROGENASE 156 U/L (84-246); MAGNESIUM LEVEL 1.9 MG/DL (1.8-2.4); NT-PRO BNP 201 PG/ML (<125); PHOSPHORUS LEVEL 2.8 MG/DL (2.5-4.9); POTASSIUM SERUM 3.4 MEQ/L (3.5-5.1); SODIUM LEVEL 141 MEQ/L (136-145); TROPONIN I < 0.02 NG/ML (< 0.10)
[2021-09-09 08:00] VITALS: O2SAT 98
[2021-09-09] MEDS: ENOXAPARIN 40MG/0.4ML SYRINGE (J1650 PER 10MG) SC SCH (08:37)
[2021-09-09] MEDS: SUCRALFATE SUSP 1GM/10ML UD PO SCH ×2 (08:38→11:15)
[2021-09-09] MEDS: PANTOPRAZOLE 40MG VIAL (C9113 PER 1) IV SCH (08:38)
[2021-09-09] MEDS ORDERED: PROT1TAB2 PO (15:25)
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
== END 2021-09-09 12:20 | disposition home or self-care (01) | DRG 137 ==
LOC: EDBD 10:01 → M ED 10:01 → M ED INP 19:58 → M 4MAIN 09-08 02:03
PROVIDERS: ADMIT Internal Medicine; ATTEND Internal Medicine
DX: U07.1 COVID-19 (principal); R00.1 Bradycardia, unspecified; R10.9 Unspecified abdominal pain; R11.2 Nausea with vomiting, unspecified; E28.2 Polycystic ovarian syndrome; M54.50 Low back pain, unspecified; Z96.82 Presence of neurostimulator; F17.210 Nicotine dependence, cigarettes, uncomplicated; E87.6 Hypokalemia; Z79.899 Other long term (current) drug therapy; K29.70 Gastritis, unspecified, without bleeding; T58.91XA Toxic effect of carbon monoxide from unspecified source, accidental (unintentional), initial encounter; F31.81 Bipolar II disorder

== ENCOUNTER 2022-09-02 07:02 | Emergency (ER) | payer MEDICAID, MEDICARE ==
[~2022-09-02] VITALS: Ht 165.1 cm; Wt 73.7 kg
[~2022-09-02 07:02] MED LIST changes: +ACET500T15 PO; +PROT1TAB2 PO
[2022-09-02] MEDS ORDERED: NS 1,000 ML IV ONE (07:15)
[2022-09-02] MEDS ORDERED: ONDANSETRON 4MG 2ML VIAL IV ONE (07:15)
[2022-09-02] MEDS ORDERED: KETOROLAC 30 MG/ML 1ML VIAL IV ONE (07:15)
[2022-09-02] MEDS ORDERED: KETOROLAC 30 MG/ML 1ML VIAL IM ONE (07:35)
[2022-09-02] MEDS ORDERED: fentaNYL 100 MCG/2 ML INJECTION IV ONE ×2 (08:05→10:55)
[2022-09-02] MEDS ORDERED: PANTOPRAZOLE 40MG VIAL IV ONE (08:10)
[2022-09-02 08:44] LABS: BASO % 0.3 % (0.0-1.0); EOS # 0.2 10^3/uL (0.0-0.5); EOS % 1.7 % (0.0-3.0); HEMATOCRIT 35.6 % (36.0-47.0); HEMOGLOBIN 12.3 g/dl (12.0-15.5); LYMPH # 2.3 10^3/uL (1.5-5.0); LYMPH % 20.2 % (24.0-44.0); MEAN CORPUSCULAR HEMOGLOBIN 31.6 pg (27.0-33.0); MEAN CORPUSCULAR HGB CONC 34.6 g/dl (32.0-36.5); MEAN CORPUSCULAR VOLUME 91.5 fl (80.0-96.0); MONO # 0.7 10^3/uL (0.0-0.8); MONO % 5.9 % (2.0-8.0); NEUTROPHILS # 8.1 10^3/uL (1.5-8.5); NEUTROPHILS % 71.5 % (36.0-66.0); PLATELET COUNT, AUTOMATED 407 10^3/uL (150-450); RED BLOOD COUNT 3.89 10^6/uL (4.00-5.40); WHITE BLOOD COUNT 11.3 10^3/uL (4.0-10.0)
[2022-09-02] MEDS ORDERED: ISOVUE-370 76% 100ML VIAL As Ordered ONE (09:05)
[2022-09-02 09:08] LABS: ERYTHROCYTE SEDIMENTATION RATE 15 mm/hr (0-20)
[2022-09-02 09:25] LABS: ALBUMIN 4.1 GM/DL (3.2-5.2); BILIRUBIN,DIRECT 0.2 MG/DL (0.0-0.2); BILIRUBIN,TOTAL 0.7 MG/DL (0.2-1.0); C REACTIVE PROTEIN QUANTITATIV 0.34 MG/DL (0.00-0.30); TOTAL PROTEIN 7.7 GM/DL (6.4-8.2)
[2022-09-02 11:25] VITALS: BP 129/68
[2022-09-02 16:00] LABS: GC DNA AMPLIFICATION NEGATIVE (NEGATIVE)
== END 2022-09-02 12:15 | disposition home or self-care (01) ==
LOC: M ED 07:02
DX: E86.0 Dehydration (principal); R59.0 Localized enlarged lymph nodes; N83.291 Other ovarian cyst, right side; F31.81 Bipolar II disorder; F17.200 Nicotine dependence, unspecified, uncomplicated
CPT/HCPCS: 74177; 80047; 80076; 81002; 83605; 83690; 84702; 85025; 85652; 86140; 87040; 87661; 87810; 87850; 93041; 96361; 96372; 96374; 96375; 99284; C9113; J1885; J2405; J3010

== ENCOUNTER → 2024-03-18 | Outpatient (CLI) | payer MEDICAID, MEDICARE ==
[2024-03-18 09:01] LABS: HEMOGLOBIN 13.5 g/dl (12.0-15.5); MEAN CORPUSCULAR HEMOGLOBIN 32.8 pg (27.0-33.0); MEAN CORPUSCULAR HGB CONC 34.6 g/dl (32.0-36.5); MEAN CORPUSCULAR VOLUME 94.7 fl (80.0-96.0); PLATELET COUNT, AUTOMATED 336 10^3/uL (150-450); RED BLOOD COUNT 4.12 10^6/uL (4.00-5.40); WHITE BLOOD COUNT 11.9 10^3/uL (4.0-10.0)
[2024-03-18 09:28] LABS: ALBUMIN 3.7 G/DL (3.2-5.2); ALKALINE PHOSPHATASE 103 U/L (46-116); ALT/SGPT 16 U/L (7.0-40); AST/SGOT 10 U/L (<34); BILIRUBIN,TOTAL 0.2 MG/DL (0.3-1.2); BLOOD UREA NITROGEN 14 MG/DL (9-23); CARBON DIOXIDE LEVEL 31 MMOL/L (20-31); CHLORIDE LEVEL 105 MMOL/L (98-107); CREATININE FOR GFR 0.74 MG/DL (0.55-1.30); GLOMERULAR FILTRATION RATE > 60.0 (>58); GLUCOSE, FASTING 87 MG/DL (60-100); POTASSIUM SERUM 4.2 MMOL/L (3.5-5.1); SODIUM LEVEL 140 MMOL/L (136-145); TOTAL PROTEIN 6.7 G/DL (5.7-8.2)
[2024-03-18 09:47] LABS: HCG, SERUM QUALITATIVE NEGATIVE (NEGATIVE)
[2024-03-18 10:26] LABS: GC DNA AMPLIFICATION NEGATIVE (NEGATIVE)
[2024-03-18 10:28] LABS: HEPATITIS C VIRUS ABY INDEX < 0.02 INDEX (<0.8)
[2024-03-18 10:50] LABS: HIV 1&2 SCREEN NEGATIVE (NEGATIVE)
== END ==
LOC: M LAB 08:11
PROVIDERS: ATTEND Family Medicine
DX: F11.20 Opioid dependence, uncomplicated (principal)

== ENCOUNTER 2025-06-18 20:58 | Inpatient (IN) | payer MEDICAID, MEDICARE ==
[~2025-06-18] VITALS: Ht 165.1 cm; Wt 69.6 kg
[2025-06-18 21:58] LABS: BASO # 0.0 10^3/uL (0.0-0.2); BASO % 0.3 % (0.0-1.0); EOS # 0.1 10^3/uL (0.0-0.5); EOS % 1.7 % (0.0-3.0); LYMPH # 1.8 10^3/uL (1.5-5.0); LYMPH % 26.3 % (24.0-44.0); MONO # 0.5 10^3/uL (0.0-0.8); MONO % 6.6 % (2.0-8.0); NEUTROPHILS # 4.4 10^3/uL (1.5-8.5); NEUTROPHILS % 64.2 % (36.0-66.0); PLATELET COUNT, AUTOMATED 395 10^3/uL (150-450)
[2025-06-18] MEDS ORDERED: ISOVUE-370 76% 100 ML VIAL As Ordered ONE (21:59)
[2025-06-18] MEDS: ACETAMINOPHEN 325 MG TAB PO ONE (22:11)
[2025-06-18 22:26] LABS: CPK CREATINE PHOSPHOKINASE 90 U/L (34-145)
[2025-06-18 22:46] LABS: CALCIUM LEVEL 8.7 MG/DL (8.5-10.1); CARBON DIOXIDE LEVEL 35 MMOL/L (20-31); CHLORIDE LEVEL 95 MMOL/L (98-107); CK-MB VALUE MASS 3.2 NG/ML (<3.6); CREATININE FOR GFR 0.71 MG/DL (0.55-1.30); GLOMERULAR FILTRATION RATE > 90.0 (>58); MB/CK RELATIVE INDEX 3.55 (< OR =4); POTASSIUM SERUM 2.9 MMOL/L (3.5-5.1); SODIUM LEVEL 139 MMOL/L (136-145)
[2025-06-18 23:05] LABS: MAGNESIUM LEVEL 1.7 MG/DL (1.8-2.4)
[2025-06-18] MEDS: POTASSIUM CHLORIDE 10% LIQ 20MEQ/15ML UDC PO ONE (23:12)
[2025-06-18] MEDS: MAG SULF 1GM/100ML (MAG RUN) 1 GM in IV 1 EA IV ONE (23:13)
[2025-06-18] MEDS ORDERED: BANO25TA PO (23:39)
[2025-06-18] MEDS ORDERED: IBUP200T46 PO (23:39)
[2025-06-18] MEDS ORDERED: HOME MED LIST COMPLETE! XX SCH (23:40)
[2025-06-19 00:19] LABS: CK-MB VALUE MASS 3.3 NG/ML (<3.6)
[2025-06-19 00:21] LABS: CPK CREATINE PHOSPHOKINASE 81 U/L (34-145); MB/CK RELATIVE INDEX 4.07 (< OR =4)
[2025-06-19] MEDS: cefTRIAXone SOD 1 GM in DEXTROSE 5% (D5W) ADV/MINI-BAG 50 ML IV ONE (01:28)
[2025-06-19] MEDS: AZITHROMYCIN 250 MG TABLET PO ONE (01:28)
[2025-06-19] MEDS: APIXABAN 5 MG TAB PO ONE (01:29)
[2025-06-19 02:14] LABS: ALT/SGPT 21 U/L (7.0-40); AST/SGOT 26 U/L (<34)
[2025-06-19 02:34] LABS: INR 1.1
[2025-06-19] MEDS ORDERED: PILL CUTTER 1 EACH XX PRN (03:20)
[2025-06-19] MEDS ORDERED: ACETAMINOPHEN 325 MG TAB PO PRN (04:00)
[2025-06-19] MEDS: NICOTINE 21 MG/24 HR 1 EA TRANSDERMAL TD SCH (04:01)
[2025-06-19 04:58] VITALS: BP 137/85; TEMP 97.3; O2SAT 100
[2025-06-19] MEDS: DOXYCYCLINE HYCLATE 100 MG TABLET PO SCH (05:35)
[2025-06-19] MEDS: ONDANSETRON 4MG 2ML VIAL IV PRN (06:13)
[2025-06-19 06:26] LABS: PLATELET COUNT, AUTOMATED 384 10^3/uL (150-450)
[2025-06-19 06:27] LABS: PLATELET COUNT, AUTOMATED 397 10^3/uL (150-450)
[2025-06-19 06:39] LABS: INR 1.55
[2025-06-19 06:45] LABS: CALCIUM LEVEL 8.3 MG/DL (8.5-10.1); CARBON DIOXIDE LEVEL 32 MMOL/L (20-31); CHLORIDE LEVEL 96 MMOL/L (98-107); CREATININE FOR GFR 0.66 MG/DL (0.55-1.30); GLOMERULAR FILTRATION RATE > 90.0 (>58); POTASSIUM SERUM 3.4 MMOL/L (3.5-5.1); SODIUM LEVEL 138 MMOL/L (136-145)
[2025-06-19 06:52] LABS: ALT/SGPT 20 U/L (7.0-40); AST/SGOT 22 U/L (<34); CALCIUM LEVEL 8.5 MG/DL (8.5-10.1); CARBON DIOXIDE LEVEL 32 MMOL/L (20-31); CHLORIDE LEVEL 96 MMOL/L (98-107); CREATININE FOR GFR 0.64 MG/DL (0.55-1.30); GLOMERULAR FILTRATION RATE > 90.0 (>58); MAGNESIUM LEVEL 2.0 MG/DL (1.8-2.4); POTASSIUM SERUM 3.4 MMOL/L (3.5-5.1); SODIUM LEVEL 138 MMOL/L (136-145)
[2025-06-19] MEDS: PANTOPRAZOLE 40MG TAB PO SCH (08:48)
[2025-06-19 08:49] VITALS: O2SAT 96
[2025-06-19 12:10] VITALS: BP 119/73; TEMP 97.7; O2SAT 100
[2025-06-19] MEDS: KCL 10MEQ/100ML SWI (KRUN) 10 MEQ in IV 1 EA IV SCH (12:24)
[2025-06-19] MEDS: APIXABAN 5 MG TAB PO SCH (12:30)
[2025-06-19] MEDS: KETOROLAC 30 MG/ML 1 ML VIAL IV PRN (12:30)
[2025-06-19 21:04] VITALS: BP 122/62; TEMP 97.7; O2SAT 99
[2025-06-20 01:03] VITALS: BP 130/70; TEMP 97; O2SAT 98
[2025-06-20] MEDS: cefTRIAXone SOD 1 GM in DEXTROSE 5% (D5W) ADV/MINI-BAG 50 ML IV SCH (01:17)
[2025-06-20 05:59] LABS: PLATELET COUNT, AUTOMATED 414 10^3/uL (150-450)
[2025-06-20 06:36] LABS: CALCIUM LEVEL 7.9 MG/DL (8.5-10.1); CARBON DIOXIDE LEVEL 33 MMOL/L (20-31); CHLORIDE LEVEL 97 MMOL/L (98-107); CREATININE FOR GFR 0.75 MG/DL (0.55-1.30); GLOMERULAR FILTRATION RATE > 90.0 (>58); IRON (FE) 28 UG/DL (50-170); MAGNESIUM LEVEL 1.5 MG/DL (1.8-2.4); PERCENT SATURATION 13.8 % (13.2-45.0); POTASSIUM SERUM 3.6 MMOL/L (3.5-5.1); SODIUM LEVEL 141 MMOL/L (136-145)
[2025-06-20 06:38] LABS: VITAMIN B12 LEVEL 288 PG/ML (211-911)
[2025-06-20 07:10] LABS: EOSINOPHILS 2 % (0-3); LYMPHOCYTES 26 % (16-44); MONOCYTES 1 % (0-5); NEUTROPHILS 71 % (28-66)
[2025-06-20 07:11] LABS: PLATELET ESTIMATE NORMAL (NORMAL)
[2025-06-20 09:50] VITALS: BP 120/78; O2SAT 97
[2025-06-20] MEDS ORDERED: ENOX80IN3 SC (10:20)
[2025-06-20 12:39] VITALS: BP 119/70; TEMP 97.9; O2SAT 99
[2025-06-20 12:47] LABS: CARDIOLIPIN IGA ANTIBODY 8.5 APL-U/mL (<20.0); CARDIOLIPIN IGG ANTIBODY < 2.0 GPL-U/mL (<20.0); CARDIOLIPIN IGM ANTIBODY < 2.0 MPL-U/mL (<20.0)
[2025-06-20] MEDS ORDERED: DOXY100T PO (13:53)
[2025-06-20] MEDS ORDERED: AMOX875T2 PO (13:53)
[2025-06-20] MEDS ORDERED: ELIQ5TAB PO (13:53)
[2025-06-20] MEDS ORDERED: FAMO20TA PO (13:53)
[2025-06-24 00:58] LABS: PROTEIN C FUNCTIONAL ACTIVITY 51 % normal (70-180); PROTEIN S FUNCTIONAL ACTIVITY 52 % normal (60-140)
== END 2025-06-20 15:54 | disposition home or self-care (01) | DRG 134 ==
LOC: M ED 20:58 → M ED INP 06-19 02:51 → M MSPAV 06-19 04:56
PROVIDERS: ADMIT Student in an Organized Health Care Education/Training Program; ATTEND Student in an Organized Health Care Education/Training Program
DX: I26.99 Other pulmonary embolism without acute cor pulmonale (principal); L03.115 Cellulitis of right lower limb; K76.0 Fatty (change of) liver, not elsewhere classified; E83.42 Hypomagnesemia; I82.411 Acute embolism and thrombosis of right femoral vein; K80.20 Calculus of gallbladder without cholecystitis without obstruction; F17.200 Nicotine dependence, unspecified, uncomplicated; E87.6 Hypokalemia; K21.9 Gastro-esophageal reflux disease without esophagitis; Z79.899 Other long term (current) drug therapy

== ENCOUNTER → 2025-07-02 | Outpatient (REF) | payer MEDICAID ==
[~2025-07-02] MED LIST changes: +AMOX875T2 PO; +BANO25TA PO; +DOXY100T PO; +ELIQ5TAB PO; +ENOX80IN3 SC; +FAMO20TA PO; +IBUP200T46 PO
[2025-07-02 20:34] LABS: CALCIUM LEVEL 8.8 MG/DL (8.5-10.1); CARBON DIOXIDE LEVEL 31 MMOL/L (20-31); CHLORIDE LEVEL 102 MMOL/L (98-107); CREATININE FOR GFR 0.77 MG/DL (0.55-1.30); GLOMERULAR FILTRATION RATE > 90.0 (>58); MAGNESIUM LEVEL 2.2 MG/DL (1.8-2.4); POTASSIUM SERUM 4.1 MMOL/L (3.5-5.1); SODIUM LEVEL 141 MMOL/L (136-145)
== END ==
LOC: M LAB REF 16:24
PROVIDERS: ATTEND Student in an Organized Health Care Education/Training Program
DX: E83.42 Hypomagnesemia (principal); E87.6 Hypokalemia